=== PATIENT | female | born 1990 | race Caucasian/White ===

== ENCOUNTER 2020-04-13 20:28 | Inpatient (IN) | payer SELFPAY ==
[2020-04-13 21:17] LABS: Basophils % 0.4 %; Eosinophils # 0.1 10^3/uL (0.0-0.8); Eosinophils % 1.5 %; Hematocrit 39.4 % (37.0-47.0); Hemoglobin 11.6 g/dL (11.5-15.3); Lymphocytes # 2.1 10^3/uL (0.8-4.8); Lymphocytes % 28.3 %; Mean Corpuscular HGB Conc 29.4 g/dL (30.0-36.0); Mean Corpuscular Volume 81.4 fL (81-99); Mean Platelet Volume 10.1 fL (7.4-10.4); Monocytes # 0.5 10^3/uL (0.2-0.9); Monocytes % 7.4 %; Neutrophils # 4.55 10^3/uL (1.8-7.7); Neutrophils % 62.1 %; Nucleated Red Blood Cells % 0 %; Platelet Count 390 10^3/cmm (130-400); Red Blood Count 4.84 10^6/uL (4.1-5.3); Red Cell Distribution Width 17.5 % (12.1-15.1); White Blood Count 7.3 10^3/uL (4.0-10.0)
[2020-04-13 21:31] VITALS: BP 135/95; PULSE 97; RESP 18; TEMP 36.4; O2SAT 98; BMI 23.6
[2020-04-13 21:31] LABS: Alanine Aminotransferase 12 U/L (0-33); Albumin Level 5.1 g/dL (3.5-5.2); Alkaline Phosphatase 97 IU/L (35-105); Anion Gap 14.8 (5-19); Aspartate Amino Transferase 17 U/L (0-32); Blood Urea Nitrogen 10 mg/dL (6-20); Calcium 9.9 mg/dL (8.5-10.5); Carbon Dioxide 25 mmol/L (22-29); Chloride 104 mmol/L (98-107); Globulin 2.5 g/dL (1.3-4.6); Glomerular Filtration Rate 84.8 mL/min (90-130); Glucose 82 mg/dL (65-115); Osmolality Calculated 285 mOsm/kg (285-295); Potassium 3.8 mmol/L (3.5-5.1); Sodium 140 mmol/L (136-145); Total Bilirubin 0.2 mg/dL (0.15-1.2); Total Protein 7.6 g/dL (6.6-8.7)
[2020-04-13 21:37] LABS: Acetaminophen < 5.0 ug/mL (10-30); Alcohol Level < 10 mg/dL (0-10); Salicylate < 0.3 mg/dL (3-10)
--- NOTE | 2020-04-13 22:06 | ED_ITS ---
HPI - Psych General: Chief Complaint: Psychiatric Symptoms Stated Complaint: mhe Time Seen by Provider: 04/13/20 21:27 Source: patient Mode of arrival: ambulatory Limitations: no limitations History of Present Illness: HPI Narrative: -year-old female who presents here for mental health exam. Friends dropped her off as she has been acting quite differently. Patient here is quite agitated and is looking all over the room and has tangential thoughts. One moment she tells me she is not suicidal in the neck she tell me she is very depressed. She is unsure if she has had any recent drug use. Patient is able to tell me the date and her name. Patient has had previous psychiatric admissions in the past. She does not appear to be stable on her own or in her right mind currently. Associated symptoms: Reports depression Review of Systems Const: Denies: fever(s), chills, body aches or change in appetite Eyes: Denies: blurry vision or eye discomfort ENMT: Denies: throat pain or dental pain Card: Denies: chest pain Resp: Denies: dyspnea GI: Denies: abdominal pain, nausea, vomiting or diarrhea : Denies: dysuria Musc: Denies: neck pain or back pain Skin/Breast: Denies: rash Neuro: Denies: headache(s) Psych: Reports: anxiety, depression and difficulty concentrating Joshua/Lymph: Denies: easy bruising All/Imm: Denies: urticaria PFS ED PFSH: Social History (Updated 10/25/19 @ 08:54 by Reinier Phipps LPN) Smoking and tobacco status: current every day smoker cigarettes Years cigarettes smoked: 13 Quit status (tobacco): has tried quititng Number of times tried to quit tobacco: 2 Second hand smoke exposure: No Smoking risk assessment/counseling performed?: Yes Tobacco counseling given: counseling >3 minutes Female Reproductive History: Date of last menstrual period: 04/13/20 Physical Exam Const: COMMON NORMALS: patient oriented x3 GENERAL APPEARANCE: anxious HENMT: COMMON NORMALS: normocephalic and atraumatic HEAD & SCALP: normocephalic and atraumatic Eye: COMMON NORMALS: Equal, round and reactive pupils present and EOMs intact bilaterally PUPIL: Yes Equal, round and reactive pupils present Neck/C-Spine: COMMON NORMALS: full ROM and supple Chest: COMMONS NORMALS: normal inspection of the chest and normal palpation of entire chest wall Resp: COMMON NORMALS: normal respiratory effort, No retractions, No use of accessory muscles and clear to auscultation bilaterally AUSCULTATION: clear to auscultation bilaterally Cardio: COMMON NORMALS: regular rate, regular rhythm and No murmurs present (Cardio) RATE: regular rate RHYTHM: regular rhythm GI: COMMON NORMALS: Normal to inspection, nondistended, normoactive bowel sounds present, Soft to palpation, non-tender and no masses PALPATION: Yes Soft to palpation Extremity: COMMON NORMALS: normal to inspection and full ROM Neuro: COMMON NORMALS: patient oriented x3, moves all extremities and no focal motor deficits Psych: APPEARANCE: Yes bizarre ATTITUDE: Yes paranoid SPEECH: Yes rapid THOUGHT PROCESS: disorganized and Tangential thought process present Skin: COMMON NORMALS: no rashes or lesions noted and no wounds GENERAL SKIN EXAM: no rashes or lesions noted MDM - Psych MDM Narrative: Medical decision making narrative: Presents here with acute psychosis. I do not feel she is safe on her own and I had Dr. Morton evaluate her on telemetry psych who recommended a 96-hour hold and admission as well. I spoke to Dr. Aragon and will admit the psychiatric unit. Lab Data: Labs: Lab Results 04/13/20 04/13/20 Range/Units 21:07 21:07 WBC 7.3 (4.0-10.0) 10^3/ uL RBC 4.84 (4.1-5.3) 10^6/u L Hgb 11.6 (11.5-15.3) g/dL Hct 39.4 (37.0-47.0) % MCV 81.4 (81-99) fL MCH 24.0 L (28.0-34.0) pg MCHC 29.4 L (30.0-36.0) g/dL RDW 17.5 H (12.1-15.1) % Plt Count 390 (130-400) 10^3/c mm MPV 10.1 (7.4-10.4) fL Neut % (Auto) 62.1 % Lymph % (Auto) 28.3 % [place] % (Auto) 7.4 % Eos % (Auto) 1.5 % Baso % (Auto) 0.4 % Neut # (Auto) 4.55 (1.8-7.7) 10^3/u L Lymph # (Auto) 2.1 (0.8-4.8) 10^3/u L [place] # (Auto) 0.5 (0.2-0.9) 10^3/u L Eos # (Auto) 0.1 (0.0-0.8) 10^3/u L Baso # (Auto) 0.0 (0.0-0.1) 10^3/u L Nucleated RBC % (a uto) 0 % Nucleated RBCs # 0.0 /100WBC Sodium 140 (136-145) mmol/L Potassium 3.8 (3.5-5.1) mmol/L Chloride 104 (98-107) mmol/L Carbon Dioxide 25 (22-29) mmol/L Anion Gap 14.8 (5-19) BUN 10 (6-20) mg/dL Creatinine 0.8 (0.5-0.9) mg/dL GFR Calculation 84.8 L (90-130) mL/min Glucose 82 (65-115) mg/dL Calculated Osmolal ity 285 (285-295) mOsm/k g Calcium 9.9 (8.5-10.5) mg/dL Total Bilirubin 0.2 (0.15-1.2) mg/dL AST 17 (0-32) U/L ALT 12 (0-33) U/L Alkaline Phosphata se 97 (35-105) IU/L Total Protein 7.6 (6.6-8.7) g/dL Albumin 5.1 (3.5-5.2) g/dL Globulin 2.5 (1.3-4.6) g/dL Salicylates < 0.3 L (3-10) mg/dL Acetaminophen < 5.0 L (10-30) ug/mL Ethyl Alcohol < 10 (0-10) mg/dL Discharge Plan Discharge Patient Disposition: Admitted As Inpatient Clinical Impression: Acute psychosis Condition: Stable Coding Level of Care Code ED Multimedia Designer for Bianca Fwd Exam Comprehensive
[2020-04-13 22:33] LABS: HCG Qualitative Urine. Negative (Negative)
[2020-04-13 23:31] VITALS: PULSE 78; RESP 18; O2SAT 99
[2020-04-13 23:43] VITALS: BP 120/82; PULSE 86; RESP 18; TEMP 36.9; O2SAT 98
[2020-04-14 01:24] LABS: Amphetamines Screen Urine Positive (Negative); Barbiturates Screen Urine Negative (Negative); Benzodiazepines Screen Urine Negative (Negative); Cocaine Screen Urine Negative (Negative); Opiate Screen Urine Negative (Negative); PCP Screen Urine Negative (Negative); THC Screen Urine Negative (Negative)
[2020-04-14 06:00] VITALS: BP 98/52; PULSE 63; RESP 20; TEMP 36.6; O2SAT 98
[2020-04-14 14:00] VITALS: BP 112/74; PULSE 69; RESP 18; TEMP 36.9; O2SAT 99
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
[2020-04-14 22:00] VITALS: BP 106/67; PULSE 56; RESP 20; TEMP 36.9; O2SAT 99
[2020-04-14] MEDS: trazodone 50 mg Tablet PO (22:19)
--- NOTE | 2020-04-14 22:19 | PC.NURSE ---
PRN TRAZODONE PT REQUESTING SLEEP AID. ADMINISTERED TRAZODONE 50 MG PO. WILL MONITOR FOR MEDICATION EFFECTIVENESS.
[2020-04-15 06:00] VITALS: BP 99/64; PULSE 56; RESP 18; TEMP 36.6; O2SAT 97
--- NOTE | 2020-04-15 11:24 | PC.RESP ---
Smoking Cessation information and a schedule of classes sent to patient.
[2020-04-15 14:00] VITALS: BP 96/58; PULSE 80; RESP 18; TEMP 36.9; O2SAT 99
[2020-04-15] MEDS: nicotine 2 mg Gum BUCCAL (18:17)
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
[2020-04-15 21:01] VITALS: BP 106/74; PULSE 81; RESP 14; TEMP 36.6; O2SAT 99
[2020-04-15] MEDS: trazodone 100 mg Tablet 200 MG PO (21:18)
[2020-04-16 06:00] VITALS: BP 93/55; PULSE 56; RESP 13; TEMP 36.3; O2SAT 98
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
[2020-04-16 10:42] VITALS: BP 93/55; PULSE 56; RESP 13; TEMP 36.3; O2SAT 98
== END 2020-04-16 12:49 | disposition home or self-care (01) | DRG 897 ==
LOC: ER 22:13 → NP 22:32
PROVIDERS: Emergency Medicine; Admitting Provider Psychiatry & Neurology Psychiatry; Visit Provider Psychiatry & Neurology Psychiatry
DX: F15.229 Other stimulant dependence with intoxication, unspecified (principal); F43.12 Post-traumatic stress disorder, chronic; F41.1 Generalized anxiety disorder; F17.210 Nicotine dependence, cigarettes, uncomplicated
CPT/HCPCS: 12345; 80053; 80306; 80307; 81025; 85025; 99284

== ENCOUNTER 2020-04-24 13:30 | Inpatient (IN) | payer SELFPAY ==
[2020-04-24 13:35] VITALS: BP 123/94; PULSE 97; RESP 16; TEMP 36.9; O2SAT 100; BMI 26.6
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
[2020-04-24 14:14] VITALS: BP 148/62; PULSE 83; RESP 20; O2SAT 98
[2020-04-24 14:17] LABS: Basophils % 0.2 %; Eosinophils # 0.1 10^3/uL (0.0-0.8); Eosinophils % 1.2 %; Hematocrit 34.7 % (37.0-47.0); Lymphocytes # 1.3 10^3/uL (0.8-4.8); Lymphocytes % 16.1 %; Mean Corpuscular HGB Conc 28.8 g/dL (30.0-36.0); Mean Corpuscular Hemoglobin 23.7 pg (28.0-34.0); Mean Corpuscular Volume 82.2 fL (81-99); Mean Platelet Volume 10.1 fL (7.4-10.4); Monocytes # 0.6 10^3/uL (0.2-0.9); Monocytes % 7.7 %; Neutrophils # 6.22 10^3/uL (1.8-7.7); Neutrophils % 74.6 %; Nucleated Red Blood Cells % 0 %; Platelet Count 314 10^3/cmm (130-400); Red Blood Count 4.22 10^6/uL (4.1-5.3); Red Cell Distribution Width 17.3 % (12.1-15.1); White Blood Count 8.3 10^3/uL (4.0-10.0)
[2020-04-24 14:30] LABS: Alanine Aminotransferase 15 U/L (0-33); Albumin Level 4.8 g/dL (3.5-5.2); Alkaline Phosphatase 87 IU/L (35-105); Anion Gap 16.2 (5-19); Aspartate Amino Transferase 22 U/L (0-32); Blood Urea Nitrogen 16 mg/dL (6-20); Calcium 8.9 mg/dL (8.5-10.5); Carbon Dioxide 23 mmol/L (22-29); Chloride 101 mmol/L (98-107); Globulin 2.9 g/dL (1.3-4.6); Glomerular Filtration Rate 98.9 mL/min (90-130); Glucose 96 mg/dL (65-115); Osmolality Calculated 280 mOsm/kg (285-295); Potassium 3.2 mmol/L (3.5-5.1); Sodium 137 mmol/L (136-145); Total Bilirubin 0.6 mg/dL (0.15-1.2); Total Protein 7.7 g/dL (6.6-8.7)
[2020-04-24 14:36] LABS: Alcohol Level < 10 mg/dL (0-10)
[2020-04-24] MEDS: LORazepam 2 mg Tablet PO (15:09)
[2020-04-24 16:44] LABS: Amphetamines Screen Urine Positive (Negative); Barbiturates Screen Urine Negative (Negative); Benzodiazepines Screen Urine Negative (Negative); Cocaine Screen Urine Negative (Negative); Opiate Screen Urine Negative (Negative); PCP Screen Urine Negative (Negative); THC Screen Urine Negative (Negative)
[2020-04-24 18:19] VITALS: BP 108/54; PULSE 76; RESP 16; O2SAT 97
[2020-04-24 21:00] VITALS: BP 112/68; PULSE 77; RESP 18; TEMP 36.6; O2SAT 99
[2020-04-24 21:24] VITALS: BP 112/68; PULSE 77; RESP 18; TEMP 36.6; O2SAT 99
[2020-04-24 22:05] VITALS: BP 112/68; PULSE 77; RESP 18; TEMP 36.6; O2SAT 98
[2020-04-25 06:00] VITALS: BP 93/59; PULSE 65; RESP 18; TEMP 37.4; O2SAT 97
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
[2020-04-25 14:00] VITALS: BP 91/46; PULSE 89; RESP 18; TEMP 36.7; O2SAT 98
[2020-04-25 20:38] VITALS: BP 117/73; PULSE 63; RESP 17; TEMP 36.5; O2SAT 97
[2020-04-25] MEDS: trazodone 100 mg Tablet 200 MG PO (21:25)
--- NOTE | 2020-04-26 04:11 | PC.NURSE ---
pt was given scheduled trazodone at HS. no behavior issues noted.
[2020-04-26 06:00] VITALS: BP 96/60; PULSE 58; RESP 15; TEMP 36.8; O2SAT 98
[2020-04-26 14:00] VITALS: BP 106/62; PULSE 78; RESP 18; TEMP 37.1; O2SAT 98
--- NOTE | 2020-04-26 15:22 | PM.NPN ---
Subjective NPU Subjective: Interval history: Lexie continues to be fairly isolative but is starting to awake from her withdrawal syndrome. We discussed what her plans were moving forward, but she reports she does plan to do rehab but not inpatient again. Currently social work team, and her, are looking for a bed in a halfway in the community. We have reached out to appropriate facilities and are awaiting their response. She reports that she plans to start there and work from that setting on her recovery with the hope that she can start getting functional again, maybe get a job, but she is not interested in inpatient and she is still not interested in starting any medications other than the Trazodone that she is taking. Mental Status Exam MSE Comments: This is an overweight white female, with adequate dress, limited grooming, and eye contact. No abnormal movements except for psychomotor retardation. More cooperative with exam in no acute distress. Speech was decreased rate and volume and limited. Mood not described as OK; affect subdued. Thought process, more organized at times. Thought content: patient denied suicidal or homicidal ideation, there were no delusions reported or noted, she denied any auditory or visual hallucinations. Attention and concentration were impaired, and memory was unreliable, but none were formally tested. She is more alert and oriented x 3. Insight and judgment are impaired. Impulse control is impaired. Vitals/I&O/Wt Last Vital Signs Temp 98.8 F 04/26/20 14:00 Pulse 78 04/26/20 14:00 Resp 18 04/26/20 14:00 BP 106/62 04/26/20 14:00 Pulse Ox 98 04/26/20 14:00 Data NPU : 04/24/20 14:12 04/24/20 14:12 A&P Additional A&P Information (1) Psychosis: (2) Amphetamine abuse: (3) Post-traumatic stress disorder, chronic: (4) Generalized anxiety disorder: This is a 29 year old, white female, with a history of depression, psychosis, and active addiction, currently with methamphetamine use with positive UDS, fairly out of it, and confused at this time. Continue current medication. Will encourage either Abilify or Invega in hopes of having a long-acting injectable as an option. Encourage individual, group, and milieu therapy. Continue q-15 minute checks for safety. Will encourage patient to follow-up with sober living treatment facility at the highest level of care to which she is willing to commit. Involuntary Hold Information 96 Hour Hold: 96 Hour Involuntary Admission: No 96 Hour Hold Ending Date: 04/19/20 96 Hour Hold Ending Time: 12:01 Attestations NPU Medical Necessity Statement*: Inpatient hospitalization is medically necessary, and the clinically appropriate intervention at this time. We will monitor medications and titrate as indicated. Likely length of stay 4-6 days. Coding Level of Care Code Acute [employer] Finishing Supervisor for Bianca Connell
[2020-04-26] MEDS: trazodone 100 mg Tablet 200 MG PO (20:19)
[2020-04-26 20:35] VITALS: BP 89/64; PULSE 61; RESP 16; TEMP 36.3; O2SAT 98
--- NOTE | 2020-04-26 21:29 | PC.NURSE ---
pt given scheduled trazodone and PRN mucinex per request.
[2020-04-26] MEDS: guaiFENesin 100 mg/5 mL UDC 10 mL 200 MG PO (21:58)
[2020-04-26 22:00] VITALS: BP 89/64; PULSE 61; RESP 16; TEMP 36.3; O2SAT 98
[2020-04-27 06:00] VITALS: BP 86/57; PULSE 67; RESP 14; TEMP 36.7; O2SAT 98
[2020-04-27 14:00] VITALS: BP 134/87; PULSE 93; RESP 18; TEMP 36.8
--- NOTE | 2020-04-27 14:11 | PM.NPN ---
Subjective NPU Subjective: Interval history: The patient presents today seeming to finally start clearing the fog, looking in her eyes the way that she had begun to look prior to discharge, back in August, the last time she was seen by this commercial loan underwriter. We continued to discuss medications, and her considering medications for her mental health but, at this time, she continues to be resistant to that. Feels like she is doing better and that her focus is going to be hopefully on getting an outpatient bed in rehab, and a spot at the residential to get herself back on her feet. Otherwise, she reports that she is sleeping well, eating fine, and slowly starting to feel more like herself. Mental Status Exam MSE Comments: This is an overweight white female, with adequate dress, grooming, and eye contact. No abnormal movements except for improving psychomotor retardation. Cooperative with exam in no acute distress. Speech was more normal rate and volume. Mood not described as better; affect less subdued. Thought process, more organized. Thought content: patient denied suicidal or homicidal ideation, there were no delusions reported or noted, she denied any auditory or visual hallucinations. Attention and concentration are improving, and memory was more, but none were formally tested. She is more alert and oriented x 3. Insight and judgment are improving. Impulse control is limited. Vitals/I&O/Wt Last Vital Signs Temp 98.0 F 04/27/20 06:00 Pulse 67 04/27/20 06:00 Resp 14 04/27/20 06:00 BP 86/57 04/27/20 06:00 Pulse Ox 98 04/27/20 06:00 Data NPU : 04/24/20 14:12 04/24/20 14:12 A&P Additional A&P Information (1) Psychosis: (2) Amphetamine abuse: (3) Post-traumatic stress disorder, chronic: (4) Generalized anxiety disorder: This is a 29 year old, white female, with a history of depression, psychosis, and active addiction, currently with methamphetamine use with positive UDS, starting to get some mental clarity. Continue current medication. Continue to encourage either Abilify or Invega in hopes of having a long-acting injectable as an option. However currently she refuses any medications other than the trazodone. Encourage individual, group, and milieu therapy. Continue q-15 minute checks for safety. Will encourage patient to follow-up with sober living treatment facility at the highest level of care to which she is willing to commit. Involuntary Hold Information 96 Hour Hold: 96 Hour Involuntary Admission: No 96 Hour Hold Ending Date: 04/19/20 96 Hour Hold Ending Time: 12:01 Attestations NPU Medical Necessity Statement*: Inpatient hospitalization is medically necessary, and the clinically appropriate intervention at this time. We will monitor medications and titrate as indicated. Likely length of stay 3-5 days. Coding Level of Care Code Acute Supervisor [employer] for Bianca Connell
[2020-04-27] MEDS: trazodone 100 mg Tablet 200 MG PO (21:37)
[2020-04-27 22:00] VITALS: BP 126/72; PULSE 109; RESP 18; TEMP 36.9; O2SAT 98
--- NOTE | 2020-04-28 00:50 | PC.NURSE ---
pt given scheduled trazodone at [facility].
[2020-04-28 06:00] VITALS: BP 93/55; PULSE 57; RESP 16; TEMP 36.6; O2SAT 97
--- NOTE | 2020-04-28 10:11 | PM.NPN ---
Subjective NPU Subjective: Interval history: Lexie presents today continuing to show improvement day by day, unlike some previous hospitalizations, she is having clarity of thought much earlier in the process. She is seeming much clearer and very much focused on getting out, as soon as possible, to engage in some level of outpatient treatment, and try to get a job, and a place, and things like that. Unfortunately, she is resistant to inpatient again, and she is resistant to psychiatric medication, as she reports she is not feeling depression or anxiety, or has any concerns to be treated. She endorses that she is eating and sleeping well. Mental Status Exam MSE Comments: This is an overweight white female, with adequate dress, grooming, and eye contact. No abnormal movements except for resolving psychomotor retardation. Cooperative with exam in no acute distress. Speech was more normal rate and volume. Mood described as little better; affect less subdued. Thought process, more organized. Thought content: patient denied suicidal or homicidal ideation, there were no delusions reported or noted, she denied any auditory or visual hallucinations. Attention and concentration are improving, and memory was more reliable, but none were formally tested. She is more alert and oriented x 3. Insight and judgment are improving. Impulse control is limited. Vitals/I&O/Wt Last Vital Signs Temp 97.8 F 04/28/20 06:00 Pulse 57 L 04/28/20 06:00 Resp 16 04/28/20 06:00 BP 93/55 04/28/20 06:00 Pulse Ox 97 04/28/20 06:00 Weight last 48 hrs Weight 85.842 kg Data NPU : 04/24/20 14:12 04/24/20 14:12 A&P Additional A&P Information (1) Psychosis: (2) Amphetamine abuse: (3) Post-traumatic stress disorder, chronic: (4) Generalized anxiety disorder: This is a 29 year old, white female, with a history of depression, psychosis, and active addiction, currently with methamphetamine use with positive UDS, starting to get some mental clarity. Continue current medication. Continue to encourage either Abilify or Invega in hopes of having a long-acting injectable as an option. However currently she refuses any medications other than the trazodone. Encourage individual, group, and milieu therapy. Continue q-15 minute checks for safety. Will encourage patient to follow-up with sober living treatment facility at the highest level of care to which she is willing to commit. Involuntary Hold Information 96 Hour Hold: 96 Hour Involuntary Admission: No 96 Hour Hold Ending Date: 04/19/20 96 Hour Hold Ending Time: 12:01 Attestations NPU Medical Necessity Statement*: Inpatient hospitalization is medically necessary, and the clinically appropriate intervention at this time. We will monitor medications and titrate as indicated. Likely length of stay 1-3 days. Coding Level of Care Code Acute Pump Service Supervisor for Bianca Connell
[2020-04-28 14:00] VITALS: BP 93/62; PULSE 84; RESP 18; TEMP 36.4; O2SAT 98
[2020-04-28] MEDS: hyDROXYzine 25 mg Capsule 50 MG PO (20:37)
[2020-04-28] MEDS: OLANZapine 5 mg ODT PO (20:37)
[2020-04-28] MEDS: trazodone 100 mg Tablet 200 MG PO (20:37)
[2020-04-28 21:16] VITALS: BP 107/71; PULSE 83; RESP 20; TEMP 36.6; O2SAT 98
--- NOTE | 2020-04-28 22:16 | PC.NURSE ---
Visteril and Zyprexa given with 2100 meds for sleep / anxiety.
[2020-04-29 06:00] VITALS: BP 83/52; PULSE 61; RESP 20; TEMP 36.6; O2SAT 99
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
[2020-04-29 11:25] VITALS: BP 83/52; PULSE 61; RESP 20; TEMP 36.6; O2SAT 99
== END 2020-04-29 12:15 | disposition home or self-care (01) | DRG 885 ==
LOC: ER 20:15 → NP 20:31
PROVIDERS: Emergency Medicine; Admitting Provider Psychiatry & Neurology Psychiatry; Visit Provider Psychiatry & Neurology Psychiatry
DX: F23 Brief psychotic disorder (principal); F15.10 Other stimulant abuse, uncomplicated; F43.11 Post-traumatic stress disorder, acute; F41.1 Generalized anxiety disorder; F17.210 Nicotine dependence, cigarettes, uncomplicated
CPT/HCPCS: 12345; 36415; 80053; 80306; 80307; 85025; 99284

== ENCOUNTER 2020-05-12 11:48 | Inpatient (IN) | payer SELFPAY ==
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
--- NOTE | 2020-05-12 11:50 | ECG_ITS ---
[facility] Test Date: 2020-05-12 Pat Name: Lexie Romero Department: Room: Gender: Female Medical Technologist Hematology: : 1990 Requested By: Yadira Eddy Order Number: [id number] Corbett MD: Lisha Rojas M.D. Measurements Intervals [place] Rate: 59 P: 23 MA: 111 QRS: 70 QRSD: 94 T: 41 QT: 430 QTc: 427 Interpretive Statements SINUS BRADYCARDIA WITH SHORT MA INTERVAL No previous ECG available for comparison Electronically Signed On 05-13-2020 16:32:53 CDT by Lisha Rojas M.D. [id number]
[2020-05-12 11:54] VITALS: BP 98/59; PULSE 62; RESP 18; TEMP 36.7; O2SAT 95; BMI 22.1
[2020-05-12 12:03] VITALS: O2SAT 98
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
[2020-05-12 12:19] LABS: Basophils % 0.3 %; Eosinophils # 0.1 10^3/uL (0.0-0.8); Eosinophils % 1.1 %; Hematocrit 36.5 % (37.0-47.0); Hemoglobin 10.6 g/dL (11.5-15.3); Lymphocytes # 1.4 10^3/uL (0.8-4.8); Lymphocytes % 22.3 %; Mean Corpuscular Hemoglobin 23.8 pg (28.0-34.0); Mean Platelet Volume 10.1 fL (7.4-10.4); Monocytes # 0.4 10^3/uL (0.2-0.9); Monocytes % 6.4 %; Neutrophils # 4.34 10^3/uL (1.8-7.7); Neutrophils % 69.7 %; Nucleated Red Blood Cells % 0 %; Platelet Count 343 10^3/cmm (130-400); Red Blood Count 4.45 10^6/uL (4.1-5.3); Red Cell Distribution Width 17.2 % (12.1-15.1); White Blood Count 6.2 10^3/uL (4.0-10.0)
[2020-05-12 12:34] LABS: HCG, Serum Qual Negative (Negative)
[2020-05-12 12:49] LABS: Alanine Aminotransferase 14 U/L (0-33); Albumin Level 4.8 g/dL (3.5-5.2); Alkaline Phosphatase 89 IU/L (35-105); Anion Gap 13.9 (5-19); Aspartate Amino Transferase 15 U/L (0-32); Blood Urea Nitrogen 12 mg/dL (6-20); Calcium 9.7 mg/dL (8.5-10.5); Carbon Dioxide 21 mmol/L (22-29); Chloride 108 mmol/L (98-107); Globulin 2.2 g/dL (1.3-4.6); Glomerular Filtration Rate 98.9 mL/min (90-130); Glucose 88 mg/dL (65-115); Osmolality Calculated 284 mOsm/kg (285-295); Potassium 3.9 mmol/L (3.5-5.1); Salicylate 0.5 mg/dL (3-10); Sodium 139 mmol/L (136-145); Thyroid Stimulating Hormone 0.53 uIU/mL (0.27-4.20); Total Bilirubin 0.3 mg/dL (0.15-1.2)
[2020-05-12 12:59] LABS: Acetaminophen < 5.0 ug/mL (10-30); Alcohol Level < 10 mg/dL (0-10); Carbamazepine Tegretol < 2.0 ug/mL (4.0-12.0); Lithium < 0.1 mmol/L (0.6-1.2); Phenytoin Dilantin < 0.8 ug/mL (10-20)
[2020-05-12 13:00] LABS: Valproic Acid Level < 2.8 ug/mL (50-100)
[2020-05-12 13:15] LABS: Amphetamines Screen Urine Positive (Negative); Barbiturates Screen Urine Negative (Negative); Benzodiazepines Screen Urine Negative (Negative); Cocaine Screen Urine Negative (Negative); Opiate Screen Urine Negative (Negative); PCP Screen Urine Negative (Negative); THC Screen Urine Negative (Negative)
[2020-05-12 14:22] VITALS: BP 103/54; PULSE 56; RESP 18; O2SAT 98
[2020-05-12 15:12] VITALS: BP 107/71; PULSE 67; RESP 18; TEMP 36.9; O2SAT 97
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
[2020-05-12] MEDS: hyDROXYzine 25 mg Capsule 50 MG PO (21:46)
[2020-05-12] MEDS: trazodone 50 mg Tablet PO (21:46)
[2020-05-12 22:00] VITALS: BP 124/78; PULSE 98; RESP 16; TEMP 37; O2SAT 97
--- NOTE | 2020-05-12 23:42 | PC.NURSE ---
Pt requested med for sleep and anxiety. PRN Trazodone and vistaril given.
[2020-05-13 06:00] VITALS: BP 97/61; PULSE 71; RESP 15; TEMP 36.6; O2SAT 96
[2020-05-13 13:31] VITALS: BP 94/58; PULSE 65; RESP 18; TEMP 36.6; O2SAT 96
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
[2020-05-13 20:24] VITALS: BP 90/62; PULSE 61; RESP 17; TEMP 36.9; O2SAT 99
[2020-05-13] MEDS: trazodone 100 mg Tablet 200 MG PO (20:43)
--- NOTE | 2020-05-13 21:38 | PC.NURSE ---
pt given scheduled trazodone at [facility].
[2020-05-14 06:00] VITALS: BP 91/49; PULSE 56; RESP 15; TEMP 36.7; O2SAT 98
[2020-05-14 13:56] VITALS: BP 98/66; PULSE 62; RESP 18; TEMP 36.7; O2SAT 98
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
[2020-05-14] MEDS: trazodone 100 mg Tablet 200 MG PO (20:42)
--- NOTE | 2020-05-14 21:20 | PC.NURSE ---
pt given scheduled trazodone.
[2020-05-14 22:00] VITALS: BP 95/65; PULSE 85; RESP 17; TEMP 36.6; O2SAT 97
[2020-05-15 06:00] VITALS: BP 75/37; PULSE 66; RESP 15; TEMP 36.6; O2SAT 97
--- NOTE | 2020-05-15 12:10 | PC.RESP ---
Smoking Cessation information sent to patient.
[2020-05-15 14:00] VITALS: BP 107/62; PULSE 66; RESP 18; TEMP 36.8; O2SAT 98
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
[2020-05-15 16:56] VITALS: BP 107/62; PULSE 66; RESP 18; TEMP 36.8; O2SAT 98
[2020-05-15] MEDS: hyDROXYzine 25 mg Capsule 50 MG PO (20:44)
[2020-05-15] MEDS: trazodone 100 mg Tablet 200 MG PO (20:44)
[2020-05-15] MEDS: blistex lip oint 7 gm Tube 1 APPLIC TOPICAL (21:03)
[2020-05-15 21:05] VITALS: BP 117/77; PULSE 70; RESP 20; TEMP 37; O2SAT 99
[2020-05-16 06:00] VITALS: BP 100/56; PULSE 54; RESP 18; TEMP 36.8; O2SAT 99
== END 2020-05-16 07:32 | disposition home or self-care (01) | DRG 897 ==
LOC: ER 13:43 → NP 14:07
PROVIDERS: Emergency Medicine
DX: F15.129 Other stimulant abuse with intoxication, unspecified (principal); F43.11 Post-traumatic stress disorder, acute; F17.210 Nicotine dependence, cigarettes, uncomplicated
CPT/HCPCS: 12345; 36415; 80053; 80156; 80164; 80178; 80185; 80306; 80307; 84443; 84703; 85025; 93005; 99284

== ENCOUNTER 2022-05-17 10:56 | Emergency (ER) | payer MEDICAID, SELFPAY ==
[2022-05-17 11:00] VITALS: BP 117/75; PULSE 87; RESP 16; TEMP 36.7; O2SAT 98; BMI 22.8
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
--- NOTE | 2022-05-19 14:23 | DCPLANNER ---
marketing finance manager had message to speak with patient about getting established with a primary care physician. There is not a working number in chart, case aide unable to speak with patient at this time.
== END 2022-05-17 12:04 | disposition home or self-care (01) ==
PROVIDERS: Emergency Provider Family Medicine
DX: L02.831 Carbuncle of head [any part, except face] (principal); F17.210 Nicotine dependence, cigarettes, uncomplicated
CPT/HCPCS: 10060; 87070; 87075; 87077; 87186; 87205; 99283

== ENCOUNTER 2022-10-30 21:09 | Emergency (ER) | payer SELFPAY ==
[2022-10-30 21:22] VITALS: PULSE 100; RESP 22; O2SAT 98; BMI 19.8
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
[2022-10-30] MEDS: LORazepam 2 mg/mL INJ 1 mL IM (21:53)
[2022-10-30] MEDS: ziprasidone 20 mg/mL SDV IM (21:54)
[2022-10-30 22:53] LABS: Basophils % 0.1 %; Eosinophils # 0.1 10^3/uL (0.0-0.8); Eosinophils % 1.1 %; Hematocrit 36.1 % (37.0-47.0); Hemoglobin 10.9 g/dL (11.5-15.3); Lymphocytes # 1.6 10^3/uL (0.8-4.8); Lymphocytes % 17.8 %; Mean Corpuscular HGB Conc 30.2 g/dL (30.0-36.0); Mean Corpuscular Hemoglobin 26.1 pg (28.0-34.0); Mean Corpuscular Volume 86.6 fl (81-99); Mean Platelet Volume 9.7 fL (7.4-10.4); Monocytes # 0.8 10^3/uL (0.2-0.9); Monocytes % 8.4 %; Neutrophils # 6.51 10^3/uL (1.8-7.7); Neutrophils % 72.3 %; Nucleated Red Blood Cells % 0 %; Platelet Count 301 10^3/cmm (130-400); Red Blood Count 4.17 10^6/uL (4.1-5.3); Red Cell Distribution Width 14.6 % (12.1-15.1)
[2022-10-30 23:19] LABS: Alanine Aminotransferase 28 U/L (0-33); Albumin Level 4.2 g/dL (3.5-5.2); Alkaline Phosphatase 117 U/L (35-105); Anion Gap 16.2 (5-19); Aspartate Amino Transferase 29 U/L (0-32); Blood Urea Nitrogen 16 mg/dL (6-20); Calcium 8.8 mg/dL (8.5-10.5); Carbon Dioxide 22 mmol/L (22-29); Chloride 103 mmol/L (98-107); Globulin 2.5 g/dL (1.3-4.6); Glomerular Filtration Rate 83.1 mL/min (90-130); Glucose 83 mg/dL (65-115); Osmolality Calculated 284 mOsm/kg (285-295); Potassium 4.2 mmol/L (3.5-5.1); Sodium 137 mmol/L (136-145); Total Bilirubin 0.2 mg/dL (0.15-1.2); Total Protein 6.7 g/dL (6.6-8.7)
[2022-10-30 23:30] LABS: Acetaminophen < 5.0 ug/mL (10-30); Alcohol Level < 10 mg/dL (0-10); Salicylate < 0.3 mg/dL (3-10)
[2022-10-31 04:40] VITALS: BP 103/54; PULSE 84; RESP 13; TEMP 37.6; O2SAT 97
--- NOTE | 2022-10-31 04:41 | PC.NURSE ---
woke pt to check mental status. pt knows name, , where she is, but states nothing is wrong with her and she doesn't know why she's here. pt is drowsy still and does not want to wake up.
--- NOTE | 2022-10-31 06:13 | PC.NURSE ---
pt woke up at 0605 and dressed herself in paper scrubs due to urinating in the jeans she was wearing. pt is awake and alert. pt walked around the room. pt was wheeled to the waiting room after being dc'd.
== END 2022-10-31 06:10 | disposition home or self-care (01) ==
PROVIDERS: Emergency Provider Emergency Medicine
DX: F23 Brief psychotic disorder (principal); F43.12 Post-traumatic stress disorder, chronic; F17.210 Nicotine dependence, cigarettes, uncomplicated
CPT/HCPCS: 80053; 80307; 85025; 96372; 99284; J2060; J3486

== ENCOUNTER 2023-04-08 23:45 | Inpatient (IN) | payer MEDICAID, SELFPAY ==
[2023-04-08 23:53] VITALS: BP 119/71; PULSE 87; RESP 16; TEMP 36.7; O2SAT 97
--- NOTE | 2023-04-09 | ED.C_ITS ---
HPI - Psych General: Chief Complaint: Psychiatric Symptoms Stated Complaint: radha wilson, seeing things Time Seen by Provider: 04/09/23 00:00 Limitations: altered mental status History of Present Illness: Ms. Santiago is a 32-year-old lady with, per chart review likely psychiatric disorder, presenting to the emergency department for mental status change. Patient provides very little meaningful clinical history. She repeats that she does not know when asked about various questions. She appears to be quite anxious and responding to internal stimuli. She does endorse concerns about her vaginal area. History is otherwise limited by mental status. Associated symptoms: Reports delusions Review of Systems General: Reports: ROS unobtainable due to mental status PFSH ED PFSH: Family History (Updated 04/15/23 @ 08:32 by Brett Zurita) Denies family history of Colon cancer Ovarian cancer Diabetes Heart disease Hyperlipidemia Breast cancer Hypertension Uterine cancer Thyroid disease Stroke Physical Exam Const: COMMON NORMALS: alert GENERAL APPEARANCE: cooperative and well developed HENMT: COMMON NORMALS: normocephalic and atraumatic HEAD & SCALP: normocephalic and atraumatic Eye: COMMON NORMALS: conjunctivae normal CONJUNCTIVA: Yes conjunctivae normal SCLERA: sclerae normal Neck/C-Spine: COMMON NORMALS: supple GENERAL: Yes trachea midline Resp: COMMON NORMALS: clear to auscultation bilaterally EFFORT & INSPECTION: Yes able to speak in complete sentences AUSCULTATION: clear to auscultation bilaterally Cardio: COMMON NORMALS: regular rate and regular rhythm RATE: regular rate RHYTHM: regular rhythm GI: COMMON NORMALS: Soft to palpation PALPATION: Yes Soft to palpation, Yes Tenderness to palpation present (GI), No Guarding due to palpation present (GI) and No Rigid due to palpation : OTHER: Pelvic exam performed with cnc lathe programmer present. Fairly extensive vulvovaginitis involving the medial thighs with tenderness palpation. No lesions or open wounds. Limited speculum exam secondary to patient discomfort even with small speculum. There appears to be generalized irritation of the vaginal vault with copious white discharge. Cervical os not definitely visualized. No vaginal bleeding. Extremity: GENERAL: Yes normal exam except as noted and No edema Neuro: COMMON NORMALS: moves all extremities SENSORIUM/ORIENTATION: Yes alert and Yes Orientation impaired Psych: THOUGHT PROCESS: disorganized THOUGHT CONTENT: Yes delusions and Yes rumination(s) INSIGHT: Poor insight present (Psych) JUDGEMENT: Poor judgement present (Psych) Course Vital Signs: Vital signs: Vital Signs Temperature 97.8 F 04/13/23 20:08 Pulse Rate 79 04/14/23 08:58 Respiratory Rate 15 04/14/23 08:58 Blood Pressure 107/68 04/14/23 08:58 Pulse Oximetry 95 04/14/23 08:58 Oxygen Delivery Me thod Room Air 04/14/23 06:00 MDM - Psych Medical Decision Making 32-year-old female presented the emergency department for psychiatric evaluation. She is quite tangential and at times mumbling. She does endorse vaginal area pain. She is nontoxic in appearance and there is no evidence of acute trauma. Labs notable for no leukocytosis, normocytic anemia without evidence of hemorrhage on exam, platelet count is normal. Metabolic panel with evidence of dehydration and hypokalemia. Her hCG is positive. Toxic ingestions positive for amphetamines on UDS and benzodiazepines on UDS. Though patient's mental status is limited I did explain the need for pelvic exam and patient was agreeable. Regardless given patient's test being positive she is at risk for potentially life-threatening time sensitive conditions that require said evaluation regardless of mental state. Exam as above. She will be treated empirically for STIs as well as wet prep findings with dosage. Ultrasound notes approximate gestational age of 25 weeks and 5 days. Based on ED evaluation at this point there is no obvious condition that would preclude inpatient management of patient's psychiatric state. Discussed with psychiatry service who was agreeable to admit patient. Medical Records I reviewed the patient's medical records. Lab Data I reviewed the patient's lab results. 04/09/23 01:11 04/09/23 01:11 Radiology Impressions Ultrasound 04/09/23 02:17 IMPRESSION: 1. Single live IUP as described, age is about 25 weeks 5 days with KELBY of 07/18/2023. 2. Full details above. The current presentation is breech. 3. At this time, there is no focal abnormality identified. Laboratory Results WBC 8.0 10^3/uL (4.0-10.0) 04/09/23 01:11 RBC 3.54 10^6/uL (4.1-5.3) L 04/09/23 01:11 Hgb 8.5 g/dL (11.5-15.3) L 04/09/23 01:11 Hct 28.9 % (37.0-47.0) L 04/09/23 01:11 MCV 81.6 fl (81-99) 04/09/23 01:11 MCH 24.0 pg (28.0-34.0) L 04/09/23 01:11 MCHC 29.4 g/dL (30.0-36.0) L 04/09/23 01:11 RDW 16.3 % (12.1-15.1) H 04/09/23 01:11 Plt Count 304 10^3/cmm (130-400) 04/09/23 01:11 MPV 9.5 fL (7.4-10.4) 04/09/23 01:11 Neut % (Auto) 60.2 % 04/09/23 01:11 Lymph % (Auto) 30.3 % 04/09/23 01:11 [place] % (Auto) 7.3 % 04/09/23 01:11 Eos % (Auto) 0.9 % 04/09/23 01:11 Baso % (Auto) 0.3 % 04/09/23 01:11 Neut # (Auto) 4.83 10^3/uL (1.8-7.7) 04/09/23 01:11 Lymph # (Auto) 2.4 10^3/uL (0.8-4.8) 04/09/23 01:11 [place] # (Auto) 0.6 10^3/uL (0.2-0.9) 04/09/23 01:11 Eos # (Auto) 0.1 10^3/uL (0.0-0.8) 04/09/23 01:11 Baso # (Auto) 0.0 10^3/uL (0.0-0.1) 04/09/23 01:11 Nucleated RBC % (auto) 0 % 04/09/23 01:11 Nucleated RBCs # 0.0 /100WBC 04/09/23 01:11 Sodium 135 mmol/L (136-145) L 04/09/23 01:11 Potassium 3.4 mmol/L (3.5-5.1) L 04/09/23 01:11 Chloride 105 mmol/L (98-107) 04/09/23 01:11 Carbon Dioxide 20 mmol/L (22-29) L 04/09/23 01:11 Anion Gap 13.4 (5-19) 04/09/23 01:11 BUN 4 mg/dL (6-20) L 04/09/23 01:11 Creatinine 0.5 mg/dL (0.5-0.9) 04/09/23 01:11 GFR Calculation 143.0 mL/min (90-130) H 04/09/23 01:11 Glucose 99 mg/dL (65-115) 04/09/23 01:11 Calculated Osmolality 277 mOsm/kg (285-295) L 04/09/23 01:11 Calcium 8.5 mg/dL (8.5-10.5) 04/09/23 01:11 Total Bilirubin 0.2 mg/dL (0.15-1.2) 04/09/23 01:11 AST 24 U/L (0-32) 04/09/23 01:11 ALT 15 U/L (0-33) 04/09/23 01:11 Alkaline Phosphatase 182 U/L (35-105) H 04/09/23 01:11 Total Protein 6.5 g/dL (6.6-8.7) L 04/09/23 01:11 Albumin 3.5 g/dL (3.5-5.2) 04/09/23 01:11 Globulin 3.0 g/dL (1.3-4.6) 04/09/23 01:11 TSH 1.83 uIU/mL (0.27-4.20) 04/09/23 01:11 HCG, Qual Positive (Negative) H 04/09/23 01:11 Ser , Semi-Qnt 40663.00 mIU/mL 04/09/23 01:11 Urine Color Yellow (Yellow) 04/09/23 04:37 Urine Appearance Clear (CLEAR) 04/09/23 04:37 Urine pH 6 (5-7) 04/09/23 04:37 Ur Specific [place] 1.020 (1.005-1.030) 04/09/23 04:37 Urine Protein Neg (Negative) 04/09/23 04:37 Urine Glucose (UA) Norm (Normal) 04/09/23 04:37 Urine Ketones Negative (Negative) 04/09/23 04:37 Urine Blood Neg (Negative) 04/09/23 04:37 Urine Nitrate Negative (Negative) 04/09/23 04:37 Urine Bilirubin Neg (Negative) 04/09/23 04:37 Urine Urobilinogen Neg mg/dL (Negative) 04/09/23 04:37 Ur Leukocyte Esterase 1+ (Negative) H 04/09/23 04:37 Urine RBC 0-4 /hpf (0-2) H 04/09/23 04:37 Urine WBC 10-15 /hpf (0-5) H 04/09/23 04:37 Ur Squamous Epith Cells 5-10 /hpf (0-5) H 04/09/23 04:37 Amorphous Sediment Not Reportable 04/09/23 04:37 Urine Bacteria 1+ /hpf (NONE) H 04/09/23 04:37 Urine Trichomonas 1+ /hpf H 04/09/23 04:37 Salicylates < 0.3 mg/dL (3-10) L 04/09/23 01:11 Urine Opiates Screen Negative ng/mL (Negative) 04/09/23 04:37 Acetaminophen < 5.0 ug/mL (10-30) L 04/09/23 01:11 Ur Barbiturates Screen Negative ng/mL (Negative) 04/09/23 04:37 Ur Phencyclidine Scrn Negative ng/mL (Negative) 04/09/23 04:37 Ur Amphetamines Screen Positive ng/mL (Negative) H 04/09/23 04:37 U Benzodiazepines Scrn Positive ng/mL (Negative) H 04/09/23 04:37 Urine Cocaine Screen Negative ng/mL (Negative) 04/09/23 04:37 U Marijuana (THC) Screen Negative ng/mL (Negative) 04/09/23 04:37 Ethyl Alcohol < 10 mg/dL (0-10) 04/09/23 01:11 C.trachomatis RNA (TMA) Detected (NOT DETECTED) A 04/09/23 02:26 Chlamydia/GC Comment See note 04/09/23 02:26 N.gonorrhoeae RNA (TMA) Not detected (NOT DETECTED) 04/09/23 02:26 Discharge Plan Discharge Patient Disposition: Admitted As Inpatient Admit Provider: Claudio Riojas Clinical Impression: Acute psychosis, Bacterial vaginosis, Vulvovaginal rash, infection, trichomonal, Anemia, , Amphetamine abuse Condition: Stable Discharge Diet: Advance as tolerated Discharge Activity: Resume usual activity Coding Level of Care Code ED Admissions Officer for Bianca Connell
[2023-04-09] MEDS: LORazepam 1 mg Tablet PO (00:41)
[2023-04-09 01:21] LABS: Basophils % 0.3 %; Eosinophils # 0.1 10^3/uL (0.0-0.8); Eosinophils % 0.9 %; Hematocrit 28.9 % (37.0-47.0); Hemoglobin 8.5 g/dL (11.5-15.3); Lymphocytes # 2.4 10^3/uL (0.8-4.8); Lymphocytes % 30.3 %; Mean Corpuscular HGB Conc 29.4 g/dL (30.0-36.0); Mean Corpuscular Volume 81.6 fl (81-99); Mean Platelet Volume 9.5 fL (7.4-10.4); Monocytes # 0.6 10^3/uL (0.2-0.9); Monocytes % 7.3 %; Neutrophils # 4.83 10^3/uL (1.8-7.7); Neutrophils % 60.2 %; Nucleated Red Blood Cells % 0 %; Platelet Count 304 10^3/cmm (130-400); Red Blood Count 3.54 10^6/uL (4.1-5.3); Red Cell Distribution Width 16.3 % (12.1-15.1)
[2023-04-09 01:33] LABS: HCG, Serum Qual Positive (Negative)
[2023-04-09 01:49] LABS: Alanine Aminotransferase 15 U/L (0-33); Albumin Level 3.5 g/dL (3.5-5.2); Alkaline Phosphatase 182 U/L (35-105); Anion Gap 13.4 (5-19); Aspartate Amino Transferase 24 U/L (0-32); Blood Urea Nitrogen 4 mg/dL (6-20); Calcium 8.5 mg/dL (8.5-10.5); Carbon Dioxide 20 mmol/L (22-29); Chloride 105 mmol/L (98-107); Glucose 99 mg/dL (65-115); Osmolality Calculated 277 mOsm/kg (285-295); Potassium 3.4 mmol/L (3.5-5.1); Sodium 135 mmol/L (136-145); Thyroid Stimulating Hormone 1.83 uIU/mL (0.27-4.20); Total Bilirubin 0.2 mg/dL (0.15-1.2); Total Protein 6.5 g/dL (6.6-8.7)
[2023-04-09 01:53] LABS: Acetaminophen < 5.0 ug/mL (10-30); Alcohol Level < 10 mg/dL (0-10); Salicylate < 0.3 mg/dL (3-10)
--- NOTE | 2023-04-09 02:17 | USR_ITS ---
PROCEDURE INFORMATION: Exam: US , Limited and US , Transvaginal Exam date and time: 04/09/2023 3:38 AM Age: 32 years old Clinical indication: Lmp or gestational age (in weeks): 25w 5d; Other: Neuropsych patient with serum hcg = 19068; ; Additional info: Preg, psychotic, unknown last lmp TECHNIQUE: Imaging protocol: Real-time ultrasound of the maternal uterus with image documentation. Transvaginal imaging was used for better evaluation of the fetus, adnexa, and/or cervix. Exam focused on the clinical indication. COMPARISON: No relevant prior studies available. FINDINGS: Gestation: Single live IUP visualized. heart rate: heart rate is 157 bpm. position: The facial profile is obscured. presentation: The presentation is currently breech. Placenta: The placenta is right-fundal, no evidence of previa. Amniotic fluid index: The [place] is 15.6 cm. ANATOMY: brain parenchyma: The brain appears intact. heart four-chamber view, heart size and position: The four-chamber heart view is normal. kidneys: Kidneys were noted. stomach: stomach was present. spine: spine unremarkable. Umbilical cord insertion site into the abdomen: Normal cord insertion. Umbilical cord vessel number: Three-vessel cord documented. BIOMETRY: Gestational age (AUA): The estimated age is about 25 weeks 5 days. Estimated due date (AUA): The KELBY is 07/18/2023. MATERNAL: Cervix: Cervix is closed with a 3.6 cm length. Intraperitoneal space: No free fluid. US/US OB >= 14 weeks fetus [id number] IMPRESSION: 1. Single live IUP as described, age is about 25 weeks 5 days with KELBY of 07/18/2023. 2. Full details above. The current presentation is breech. 3. At this time, there is no focal abnormality identified.
[2023-04-09] MEDS: azithromycin 250 mg Tablet 1000 MG PO (03:16)
[2023-04-09] MEDS: metroNIDAZOLE 500 MG Tablet 2000 MG PO (03:16)
[2023-04-09] MEDS: cefTRIAXone 500 MG in water for injection-sterile 1 ML IM (03:17)
[2023-04-09 04:40] VITALS: BP 104/65; PULSE 71; RESP 16; O2SAT 96
[2023-04-09 04:55] LABS: Add Urine Microscopic? YES; Bilirubin Urine Neg (Negative); Blood Urine Neg (Negative); Glucose Urine UA Norm (Normal); Ketones Urine Negative (Negative); Leukocyte Esterase Urine 1+ (Negative); Nitrate Urine Negative (Negative); Protein Urine Neg (Negative); Urine Color Yellow (Yellow); Urobilinogen Urine Neg (Negative); pH Urine 6 (5-7)
[2023-04-09 04:56] LABS: Bacteria Urine 1+ /hpf; RBC Urine 0-4 /hpf (0-2); Trichomonas Urine 1+ /hpf
[2023-04-09 04:57] LABS: Add Urine Culture? Yes; Amphetamines Screen Urine Positive (Negative); Barbiturates Screen Urine Negative (Negative); Benzodiazepines Screen Urine Positive (Negative); Cocaine Screen Urine Negative (Negative); Opiate Screen Urine Negative (Negative); PCP Screen Urine Negative (Negative); THC Screen Urine Negative (Negative); Urine Appearance Clear (CLEAR)
[2023-04-09 05:45] VITALS: BP 124/76; PULSE 76; RESP 16; TEMP 36.7; O2SAT 99
[2023-04-09 14:00] VITALS: BP 101/61; PULSE 84; RESP 16; TEMP 37.6; O2SAT 97
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
--- NOTE | 2023-04-09 19:37 | PC.NURSE ---
CONSULT FOR OB PLACED PER DR. RAMOS ORDERS. OB STATED DR. GARCIA WAS METAL INSPECTOR. DR. GARCIA CALLED AND SHE STATED SHE WAS NOT METAL INSPECTOR THIS WEEKEND. OB RN IS HERE TO CHECK HEART TONES PER ORDER THIS AM. AWAITING TO SEE WHO IS METAL INSPECTOR FOR OB.
--- NOTE | 2023-04-09 19:48 | PC.NURSE ---
AT 194 DR. FLOR WAS CONSULTED FOR OB CONSULT. SPOKE WITH DR. FLOR AND HE WAS UPDATED IN PT. STATES HE WILL SEE HER TOMORROW. RATNA RN COMPLETED HEART TONES AT 194 AT HEART TONES WERE REGULAR IN THE 150'S. PT WAS UPDATED ON DR. FLOR SEEING HER TOMORROW.
[2023-04-09] MEDS: haloperidol 1 mg Tablet PO (20:47)
[2023-04-09 22:00] VITALS: BP 100/60; PULSE 78; RESP 16; TEMP 36.7; O2SAT 98
[2023-04-10 06:00] VITALS: BP 107/69; PULSE 83; RESP 20; TEMP 36.4; O2SAT 98
[2023-04-10 12:03] LABS: Chlamydia Trachomatis RNA TMA DETECTED (NOT DETECTED); Neisseria Gonorrhoeae RNA, TMA NOT DETECTED (NOT DETECTED)
[2023-04-10 14:00] VITALS: BP 104/65; PULSE 73; RESP 15; TEMP 36.7; O2SAT 100
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
--- NOTE | 2023-04-10 17:23 | W.PM.NPUPNS ---
Subjective NPU Subjective: 32 year old 25 weeks admitted with psychosis with methamphetamine abuse admitted with disorganized behavior and depressed mood. She reported continued depression and reports feeling depressed. She had endorsed being homeless and reported that she had not heard voices today. She reports continued suicidal thoughts. She had reported sleep continuity disruption. She had isolated on the milieu and reported that she did not know that she was until this week. Mental Status Exam MSE Comments: This is a 32-year-old female who appeared older than her stated age. She had poor hygiene and was lying in bed but alert and oriented x3. There was significant psychomotor retardation noted. Her speech was normal in productivity and normal in volume and rhythm. Mood was described as depressed. Her affect was odd and subdued. She did at times appear to be responding to internal stimuli. Her thought process was nonlinear and illogical. Her thought content showed no evidence of homicidal or suicidal ideation. There was mild evidence of paranoia. Her insight is impaired. Her judgment is poor. Her impulse control appeared limited. Her recent and remote memory appeared to be improved. Vitals/I&O/Wt Last Vital Signs Temp 98.1 F 04/10/23 14:00 Pulse 73 04/10/23 14:00 Resp 15 04/10/23 14:00 BP 104/65 04/10/23 14:00 Pulse Ox 100 04/10/23 14:00 O2 Del Method Room Air 04/10/23 06:00 Weight last 48 hrs Weight 81.193 kg Data NPU 04/09/23 01:11 04/09/23 01:11 Micro: Microbiology 04/09/23 04:37 Urine Culture - Preliminary Urine,Clean Catch 04/09/23 01:50 Gram Stain - Final Vaginal Wet Prep - Final Microbiology 04/09/23 04:37 Urine,Clean Catch Urine Culture - Preliminary 04/09/23 01:50 Vaginal Gram Stain - Final 04/09/23 01:50 Vaginal Wet Prep - Final A&P Assessment and plan (1) Acute psychosis: (2) Methamphetamine abuse: (3) : Plan 32-year-old female currently 25 weeks admitted with disorganized behavior and complaints of hallucinations in the context of active use of methamphetamine. Patient will continue require inpatient hospitalization. 1.?Encourage individual, group and milieu therapy. 2.?Recommend sober living treatment at the highest level of care to which the patient is willing to commit. 3.??? Continue q-15 minute checks for safety.? 4. We will attempt to gather collateral and information. 5. FOOD PROCESSING PLANT MANAGER consult recommended 6. Trial of zoloft to target depression, risks, benefits discussed with patient who was agreeable. Involuntary Hold Information 96 Hour Hold: 96 Hour Involuntary Admission: Yes 96 Hour Hold Ending Date: 04/15/23 96 Hour Hold Ending Time: 04:20 Attestations NPU Medical Necessity Statement*: Inpatient hospitalization is medically necessary and deemed to be the clinically appropriate intervention at this time. We will monitor and initiate medications while making changes as indicated. The patient will be in the hospital for over 2 midnights. The patient's likely length of stay is 4 to 7 days. Coding Level of Care Code Acute Code for g Fwd Diagnoses Acute psychosis F23 Methamphetamine abuse F15.10 Z34.90
[2023-04-10] MEDS: metroNIDAZOLE 500 MG Tablet 2000 MG PO (17:44)
[2023-04-10] MEDS: sertraline 50 mg Tablet 25 MG PO (17:46)
[2023-04-10 19:54] VITALS: BP 104/63; PULSE 74; RESP 15; O2SAT 98
[2023-04-10] MEDS: haloperidol 1 mg Tablet PO (20:42)
[2023-04-11 06:00] VITALS: BP 101/69; PULSE 90; RESP 18; O2SAT 97; BMI 27.0
[2023-04-11] MEDS: sertraline 50 mg Tablet 25 MG PO (09:27)
[2023-04-11 14:00] VITALS: BP 104/67; PULSE 96; RESP 15; TEMP 36.4; O2SAT 98
--- NOTE | 2023-04-11 14:19 | PC.NURSE ---
call made to Dr Shields regarding vaginal culture report of Strep B agalactiae+. Per Dr Shields patient will be treated with IV antibiotics during labor. Dr Riojas informed
--- NOTE | 2023-04-11 15:14 | W.PM.NPUPNS ---
Subjective NPU Subjective: 32 year old 25 weeks admitted with psychosis, depression with methamphetamine abuse admitted with disorganized behavior and depressed mood. She continues to endorse feeling depressed. Patient had been positive for group B streptococcus and remains 25 weeks . Patient had tolerated antibiotics without difficulty. She had reported intermittent suicidal thoughts. She had reported feeling better today. She had reported no auditory hallucinations today. She had been able to eat and was compliant and redirectable on the milieu. She had continue to report feeling tired and stated that she wanted to sleep throughout the day. Mental Status Exam MSE Comments: This is a 32-year-old female who appeared older than her stated age. She had poor hygiene and was lying in bed but alert and oriented x3. There was significant psychomotor retardation noted. Her speech was normal in productivity and normal in volume and rhythm. Mood was described as a little better. Her affect was odd and subdued. She did not appear to be responding to internal stimuli. There was no overt delusional thinking noted. Her thought process was linear and logical today. Her thought content showed no evidence of homicidal or suicidal ideation. There was mild evidence of paranoia. Her insight was improving. Her judgment is poor. Her impulse control appeared limited. Her recent and remote memory appeared to be improved. Vitals/I&O/Wt Last Vital Signs Temp 98.1 F 04/10/23 14:00 Pulse 90 04/11/23 06:00 Resp 18 04/11/23 06:00 BP 101/69 04/11/23 06:00 Pulse Ox 97 04/11/23 06:00 O2 Del Method Room Air 04/10/23 06:00 Weight last 48 hrs Weight 80.739 kg Data NPU 04/09/23 01:11 04/09/23 01:11 Micro: Microbiology 04/09/23 01:50 Gram Stain - Final Vaginal Wet Prep - Final Genital Culture - Preliminary Strep agalactiae - (group b) 04/09/23 04:37 Urine Culture - Final Urine,Clean Catch Microbiology 04/09/23 01:50 Vaginal Gram Stain - Final 04/09/23 01:50 Vaginal Wet Prep - Final 04/09/23 01:50 Vaginal Genital Culture - Preliminary Strep agalactiae - (group b) 04/09/23 04:37 Urine,Clean Catch Urine Culture - Final A&P Assessment and plan (1) Acute psychosis: (2) Methamphetamine abuse: (3) : Plan 32-year-old female currently 25 weeks admitted with disorganized behavior and complaints of hallucinations in the context of active use of methamphetamine. Patient will continue require inpatient hospitalization. 1.?Encourage individual, group and milieu therapy. 2.?Recommend sober living treatment at the highest level of care to which the patient is willing to commit. 3.??? Continue q-15 minute checks for safety.? 4. We will attempt to gather collateral and information. 5. CHIMNEY CONSTRUCTION SUPERVISOR consult appreciated. Patient positive for Group B strep, will need treatment when delivery occurs. Continue Flagyl for infection. 6. Continue Zoloft as prescribed. Haldol 1mg at night. Involuntary Hold Information 96 Hour Hold: 96 Hour Involuntary Admission: Yes 96 Hour Hold Ending Date: 04/15/23 96 Hour Hold Ending Time: 04:20 Attestations NPU Medical Necessity Statement*: Inpatient hospitalization is medically necessary and deemed to be the clinically appropriate intervention at this time. We will monitor and initiate medications while making changes as indicated. The patient's likely length of stay is 4 to 7 days. Coding Level of Care Code Acute Code for g Fwd Diagnoses Acute psychosis F23 Methamphetamine abuse F15.10 Z34.90
[2023-04-11] MEDS: azithromycin 250 mg Tablet 1000 MG PO (15:16)
[2023-04-11 19:38] VITALS: BP 97/61; PULSE 79; RESP 16; TEMP 36.5; O2SAT 98
[2023-04-11] MEDS: haloperidol 1 mg Tablet PO (20:11)
[2023-04-12 06:00] VITALS: BP 107/65; PULSE 84; RESP 16; TEMP 36.9; O2SAT 98
[2023-04-12] MEDS: sertraline 50 mg Tablet 25 MG PO (08:34)
[2023-04-12 14:00] VITALS: BP 115/74; PULSE 87; RESP 16; TEMP 36.7; O2SAT 97
--- NOTE | 2023-04-12 16:22 | P.NPUPN_ITS ---
Subjective NPU Subjective: 32 year old 25 weeks admitted with psychosis, depression with methamphetamine abuse admitted with disorganized behavior and depressed mood. The patient had reported no desire to consider substance abuse treatment. She stated that she was agreeable to staying at a snf. She reported no hallucinations at this time. She was compliant and pleasant on the unit. She had reported that [place] [facility] [place] She was agreeable to following up with her OB GEN for further examination regarding her child. She was compliant on the milieu and appeared somewhat tired but was engageable. Mental Status Exam MSE Comments: This is a 32-year-old female who appeared older than her stated age. She had poor hygiene and was lying in bed but alert and oriented x3. There was mild psychomotor retardation noted. Her speech was normal in productivity and normal in volume and rhythm. Mood was described as a okay.. Her affect was restricted in range and mood incongruent still. She did not appear to be responding to internal stimuli. There was no overt delusional thinking noted. Her thought process was linear and logical today. Her thought content showed no evidence of homicidal or suicidal ideation. . Her insight was improving. Her judgment is poor. Her impulse control appeared limited. Her recent and remote memory appeared to be improved. Vitals/I&O/Wt Last Vital Signs Temp 98.0 F 04/12/23 14:00 Pulse 87 04/12/23 14:00 Resp 16 04/12/23 14:00 BP 115/74 04/12/23 14:00 Pulse Ox 97 04/12/23 14:00 O2 Del Method Room Air 04/11/23 19:38 Weight last 48 hrs Weight 80.739 kg Data NPU 04/09/23 01:11 04/09/23 01:11 Micro: Microbiology 04/09/23 01:50 Gram Stain - Final Vaginal Wet Prep - Final Genital Culture - Final Strep agalactiae - (group b) Microbiology 04/09/23 01:50 Vaginal Gram Stain - Final 04/09/23 01:50 Vaginal Wet Prep - Final 04/09/23 01:50 Vaginal Genital Culture - Final Strep agalactiae - (group b) A&P Assessment and plan (1) Acute psychosis: (2) Methamphetamine abuse: (3) : Plan 32-year-old female currently 25 weeks admitted with disorganized behavior and complaints of hallucinations in the context of active use of methamphetamine. Patient will continue require inpatient hospitalization. 1.?Encourage individual, group and milieu therapy. 2.?Recommend sober living treatment at the highest level of care to which the patient is willing to commit. 3.??? Continue q-15 minute checks for safety.? 4. We will attempt to gather collateral and information. 5. [employer] HELPER consult appreciated. Patient positive for Group B strep, will need treatment when delivery occurs. Continue Flagyl for infection. 6. Increase zoloft to 50mg in am. D/C haldol Involuntary Hold Information 96 Hour Hold: 96 Hour Involuntary Admission: Yes 96 Hour Hold Ending Date: 04/15/23 96 Hour Hold Ending Time: 04:20 Attestations NPU Medical Necessity Statement*: Inpatient hospitalization is medically necessary and deemed to be the clinically appropriate intervention at this time. We will monitor and initiate medications while making changes as indicated. The patient's likely length of stay is 2-3 days. Coding Level of Care Code Acute Code for [facility]i Diagnoses Acute psychosis F23 Methamphetamine abuse F15.10 Z34.90
[2023-04-12 19:48] VITALS: BP 101/69; PULSE 82; RESP 16; TEMP 37.2; O2SAT 98
[2023-04-12] MEDS: trazodone 50 mg Tablet PO (20:52)
[2023-04-13 06:00] VITALS: BP 100/60; PULSE 90; RESP 16; O2SAT 97
[2023-04-13] MEDS: sertraline 50 mg Tablet PO (09:57)
[2023-04-13 13:27] VITALS: BP 108/68; PULSE 77; RESP 15; TEMP 36.6; O2SAT 91
--- NOTE | 2023-04-13 17:12 | P.NPUPN_ITS ---
Subjective NPU Subjective: 32 year old 25 weeks admitted with psychosis, depression with methamphetamine abuse admitted with disorganized behavior and depressed mood. Patient had accepted placement [place] [facility] [place]. The patient had reported no desire to consider substance abuse treatment and refused [facility] services on interview. She had reported that her mood had been feeling better. She had denied any suicidal thoughts today. She reported improved energy. She had been less confused and reported that she would be interested in another treatment for substance abuse. Mental Status Exam MSE Comments: This is a 32-year-old female who appeared older than her stated age. She had poor hygiene and was lying in bed but alert and oriented x3. There was mild psychomotor retardation noted. Her speech was normal in productivity and normal in volume and rhythm. Mood was described as better.. Her affect remains restricted in range but slightly brighter. She did not appear to be responding to internal stimuli. There was no overt delusional thinking noted. Her thought process was linear and logical today. Her thought content showed no evidence of homicidal or suicidal ideation. Her insight was improving. Her judgment is poor in regards to not wanting further services for her addiction issues. Her impulse control appeared limited. Her recent and remote memory appeared to be improved. Vitals/I&O/Wt Last Vital Signs Temp 98 F 04/13/23 13:27 Pulse 77 04/13/23 13:27 Resp 15 04/13/23 13:27 BP 108/68 04/13/23 13:27 Pulse Ox 91 04/13/23 13:27 O2 Del Method Room Air 04/13/23 06:00 Data NPU 04/09/23 01:11 04/09/23 01:11 Micro: Microbiology 04/09/23 01:50 Gram Stain - Final Vaginal Wet Prep - Final Genital Culture - Final Strep agalactiae - (group b) Microbiology 04/09/23 01:50 Vaginal Gram Stain - Final 04/09/23 01:50 Vaginal Wet Prep - Final 04/09/23 01:50 Vaginal Genital Culture - Final Strep agalactiae - (group b) A&P Assessment and plan (1) Acute psychosis: (2) Methamphetamine abuse: (3) : Plan 32-year-old female currently 25 weeks admitted with disorganized behavior and complaints of hallucinations in the context of active use of methamphetamine. Patient will continue require inpatient hospitalization. 1.?Encourage individual, group and milieu therapy. 2.?Recommend sober living treatment at the highest level of care to which the patient is willing to commit. 3.??? Continue q-15 minute checks for safety.? 4. We will attempt to gather collateral and information. 5. [employer] SURGEON consult appreciated. Patient positive for Group B strep, will need treatment when delivery occurs. Continue Flagyl for infection. 6. Continue zoloft to 50mg in am. D/C tommorow. Follow up with [employer] SURGEON needed immediately. Involuntary Hold Information 96 Hour Hold: 96 Hour Involuntary Admission: Yes 96 Hour Hold Ending Date: 04/15/23 96 Hour Hold Ending Time: 04:20 Attestations NPU Medical Necessity Statement*: Inpatient hospitalization is medically necessary and deemed to be the clinically appropriate intervention at this time. We will monitor and initiate medications while making changes as indicated. The patient's likely length of stay is 1-2 days. Coding Level of Care Code Acute Code for g Fwd Diagnoses Acute psychosis F23 Methamphetamine abuse F15.10 Z34.90
[2023-04-13 20:08] VITALS: BP 110/66; PULSE 84; RESP 17; TEMP 36.6; O2SAT 95
[2023-04-13] MEDS: trazodone 50 mg Tablet PO (20:40)
[2023-04-14 06:00] VITALS: BP 107/68; PULSE 79; RESP 15; O2SAT 95
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
[2023-04-14 08:58] VITALS: BP 107/68; PULSE 79; RESP 15; O2SAT 95
[2023-04-14] MEDS: sertraline 50 mg Tablet PO (09:16)
[2023-04-14] MEDS: prenatal vitamin Capsule 1 CAP PO (09:16)
== END 2023-04-14 11:34 | disposition home or self-care (01) | DRG 832 ==
LOC: ER 04-09 05:09 → NP 04-09 05:25
PROVIDERS: Admitting Provider Psychiatry & Neurology Psychiatry; Emergency Provider Emergency Medicine; Visit Provider Psychiatry & Neurology Psychiatry
DX: O99.342 Other mental disorders complicating pregnancy, second trimester (principal); F15.20 Other stimulant dependence, uncomplicated; R45.851 Suicidal ideations; F53.1 Puerperal psychosis; Z3A.25 25 weeks gestation of pregnancy; Z62.810 Personal history of physical and sexual abuse in childhood; Z59.00 Homelessness unspecified; O99.820 Streptococcus B carrier state complicating pregnancy; Z91.128 Patient's intentional underdosing of medication regimen for other reason
CPT/HCPCS: 36415; 76805; 80053; 80306; 80307; 81001; 84443; 84702; 84703; 85025; 87070; 87086; 87205; 87210; 87491; 87591; 96372; 97165; 99238; 99285; J0696; Q0144

== ENCOUNTER → 2023-04-15 08:40 | Outpatient (BNVA) | payer MEDICAID, SELFPAY | PROVIDERS: Visit Provider Obstetrics & Gynecology | DX: Z34.80 Encounter for supervision of other normal pregnancy, unspecified trimester (principal) | CPT/HCPCS: 80307; 81000; 82950; 85027; 86592; 86762; 86803; 86850; 86900; 87086; 87340; 87522; 87806 ==

== ENCOUNTER 2023-05-04 23:24 | Outpatient (CLI) | payer MEDICAID, SELFPAY ==
[2023-05-04 23:39] VITALS: BP 125/83; PULSE 90
[2023-05-04 23:43] VITALS: RESP 15
[2023-05-04 23:54] VITALS: BP 101/64; PULSE 82
[2023-05-05 00:08] VITALS: BP 112/56; PULSE 73
[2023-05-05 00:36] VITALS: BMI 26.6
[2023-05-05 00:54] LABS: Amphetamines Screen Urine Positive (Negative); Barbiturates Screen Urine Negative (Negative); Benzodiazepines Screen Urine Negative (Negative); Cocaine Screen Urine Negative (Negative); Opiate Screen Urine Negative (Negative); PCP Screen Urine Negative (Negative); THC Screen Urine Negative (Negative)
[2023-05-05 00:58] LABS: Bilirubin Urine Neg (Negative); Blood Urine Neg (Negative); Glucose Urine UA Norm (Normal); Ketones Urine Negative (Negative); Nitrate Urine Negative (Negative); Protein Urine Neg (Negative); Specific Gravity, Urine 1.015 (1.005-1.030); Urine Appearance Hazy (CLEAR); Urine Color Yellow (Yellow); Urobilinogen Urine Norm (Negative); pH Urine 6 (5-7)
[2023-05-05 00:59] LABS: Bacteria Urine TRACE /hpf; Leukocyte Esterase Urine 2+ (Negative); RBC Urine 0-4 /hpf (0-2); Trichomonas Urine 1+ /hpf; WBC Urine 15-25 /hpf (0-5)
[2023-05-05 01:00] LABS: Add Urine Culture? Yes
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
--- NOTE | 2023-05-05 23:51 | USR_ITS ---
PROCEDURE INFORMATION: Exam: US , Limited Exam date and time: 05/05/2023 12:19 AM Age: 32 years old Clinical indication: Lmp or gestational age (in weeks): 29w 2d by prior u/s a month ago; Antepartum complications; Other: Neuropsych patient reports leaking fluid; ; Additional info: Shimon; Patient reports leaking fluid LABS AND CLINICAL REPORTS: Last menstrual period start date: 10/12/2022 Gestational age (Established): 29 w 2 d Estimated due date (Established): 07/19/2023 TECHNIQUE: Imaging protocol: Real-time ultrasound of the maternal uterus with image documentation. Exam focused on the clinical indication. COMPARISON: US OB <= 14 weeks fetus [id number] 04/09/2023 3:38 AM FINDINGS: Gestation: Intrauterine gestation. heart rate: 141 bpm presentation: Cephalic Placenta: Anterior and Right grade 1 placenta without previa. Amniotic fluid: Amniotic fluid volume is normal. Amniotic fluid index: SHIMON is 17.5 cm. Single deepest pocket measures 5.1 cm. MATERNAL: Cervix: Cervical length measures 3.6 cm. US/US OB limited [id number] IMPRESSION: Living [place] fetus is in cephalic position. Amniotic fluid index is normal. Closed cervix. No evidence of placenta previa.
== END 2023-05-05 00:50 | disposition home or self-care (01) ==
LOC: OPOB 23:25 → OBGYN 23:26
PROVIDERS: Visit Provider Obstetrics & Gynecology
DX: O26.899 Other specified pregnancy related conditions, unspecified trimester (principal); R10.9 Unspecified abdominal pain; Z3A.00 Weeks of gestation of pregnancy not specified
CPT/HCPCS: 76815; 80306; 81001; 87086

== ENCOUNTER 2023-05-05 00:51 | Inpatient (IN) | payer MEDICAID, SELFPAY ==
[2023-05-05 00:55] VITALS: BP 118/77; PULSE 81; RESP 18; TEMP 36.5; O2SAT 100; BMI 25.1
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
[2023-05-05 01:24] LABS: Basophils % 0.2 %; Eosinophils # 0.1 10^3/uL (0.0-0.8); Eosinophils % 0.9 %; Hematocrit 30.1 % (37.0-47.0); Hemoglobin 8.7 g/dL (11.5-15.3); Lymphocytes # 2.6 10^3/uL (0.8-4.8); Lymphocytes % 23.5 %; Mean Corpuscular HGB Conc 28.9 g/dL (30.0-36.0); Mean Corpuscular Hemoglobin 22.7 pg (28.0-34.0); Mean Corpuscular Volume 78.4 fl (81-99); Mean Platelet Volume 9.7 fL (7.4-10.4); Monocytes # 0.6 10^3/uL (0.2-0.9); Monocytes % 5.5 %; Neutrophils # 7.65 10^3/uL (1.8-7.7); Neutrophils % 69.5 %; Nucleated Red Blood Cells % 0 %; Platelet Count 357 10^3/cmm (130-400); Red Blood Count 3.84 10^6/uL (4.1-5.3); Red Cell Distribution Width 16.9 % (12.1-15.1)
[2023-05-05 01:29] VITALS: BP 143/91; PULSE 74; RESP 18; TEMP 36.6; O2SAT 100
[2023-05-05 01:39] LABS: Alanine Aminotransferase 37 U/L (0-33); Albumin Level 3.3 g/dL (3.5-5.2); Alkaline Phosphatase 195 U/L (35-105); Anion Gap 14.6 (5-19); Aspartate Amino Transferase 31 U/L (0-32); Blood Urea Nitrogen 8 mg/dL (6-20); Calcium 8.8 mg/dL (8.5-10.5); Carbon Dioxide 20 mmol/L (22-29); Chloride 105 mmol/L (98-107); Globulin 3.5 g/dL (1.3-4.6); Glucose 85 mg/dL (65-115); Osmolality Calculated 278 mOsm/kg (285-295); Potassium 4.6 mmol/L (3.5-5.1); Salicylate 1.1 mg/dL (3-10); Sodium 135 mmol/L (136-145); Total Bilirubin 0.2 mg/dL (0.15-1.2); Total Protein 6.8 g/dL (6.6-8.7)
[2023-05-05 01:43] VITALS: BP 118/77; PULSE 81; RESP 18; TEMP 36.5; O2SAT 100
[2023-05-05 01:47] LABS: Acetaminophen < 5.0 ug/mL (10-30); Alcohol Level < 10 mg/dL (0-10)
--- NOTE | 2023-05-05 02:03 | PC.NURSE ---
Pt arrived to NPU w/2 RNs at side. Pt denies all drug and alcohol abuse, however is clearly under the influence. It is difficult to complete admit assessment because pt can't stay on task. Pt sitting on bench awaiting housekeeping to clean the room.
--- NOTE | 2023-05-05 02:13 | PC.NURSE ---
Pt drug screen returned + for AMP, pt con't to deny drug use. Pt unable to verify her medications states I don't know .
[2023-05-05 06:00] VITALS: RESP 16
--- NOTE | 2023-05-05 08:20 | PC.OT ---
EVAL ATTEMPTED AT 0815. PT WILL NOT STAY AWAKE TO ANSWER QUESTIONS. NURSING RECOMMENDS HOLD AT THIS TIME. WILL FOLLOW UP APPROPRIATE.
[2023-05-05] MEDS: sertraline 50 mg Tablet PO (09:55)
[2023-05-05] MEDS: prenatal vitamin Capsule 1 CAP PO (09:55)
--- NOTE | 2023-05-05 10:10 | PC.NURSE ---
pt pocketed zoloft in her mouth upon administration. swallowed vitamin but then when [employer] superintendent [employer] Jessica turned away from patient I observed her spitting out something into the cover I imediatley asked her was she having problems taking her medication pt then put pill back into her mouth and swallowed showing me with raised tongue and wide mouth that she did swallow it.
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
[2023-05-05 14:00] VITALS: BP 121/70; PULSE 74; RESP 16; TEMP 36.6; O2SAT 97
[2023-05-05] MEDS: haloperidol 1 mg Tablet PO (17:39)
[2023-05-05 20:13] VITALS: BP 115/69; PULSE 74; RESP 14; TEMP 36.9; O2SAT 98
--- NOTE | 2023-05-05 21:09 | PC.NURSE ---
2 OB nurses to unit and did FHT, reported them at 134.
[2023-05-06 06:00] VITALS: BP 116/76; PULSE 74; RESP 15; O2SAT 96
[2023-05-06] MEDS: prenatal vitamin Capsule 1 CAP PO (09:11)
[2023-05-06] MEDS: sertraline 50 mg Tablet PO (09:11)
--- NOTE | 2023-05-06 10:22 | PC.NURSE ---
spoke with Dr Shields regarding his patient being back in NPU. Informed him patient still tested positive for trich. He stated she also tested positive for chlamydia and ordered meds for this infection. Informed Dr Riojas and Dr Shields stated he does not need another consult on her
[2023-05-06] MEDS: azithromycin 250 mg Tablet 1000 MG PO (11:03)
[2023-05-06] MEDS: metroNIDAZOLE 500 MG Tablet 2000 MG PO (11:04)
[2023-05-06 14:00] VITALS: BP 120/75; PULSE 75; RESP 16; TEMP 36.7; O2SAT 99
--- NOTE | 2023-05-06 16:00 | W.PM.NPUPNS ---
Subjective NPU Subjective: 32 year old 27 weeks admitted with psychosis, depression with methamphetamine abuse admitted with disorganized behavior and depressed mood. The patient had continued to isolate herself on the milieu. She had been very forgetful and confused. She had been positive again for trichomonas and was evaluated by the patient's PERFORATOR LOADER on the unit today. Patient had been willing to consider another replacement here [place] when stabilized. She had continued to report depressed mood but minimized any drug use recently. 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 She continued to require prompting for completion of activities of daily living. Mental Status Exam MSE Comments: The patient is a white female with normal gait and poor hygiene with a disheveled appearance. There was no evidence of any abnormal involuntary motor movements tics or tremors appreciated. She continued to appear somewhat distracted. She had wrapped a blanket around her body and face and still appeared in moderate distress. Her speech remained slurred and slow with some increased latency in speech noted and diminished spontaneous spontaneity of speech. Her thought process was linear but superficial. Thought content: She endorsed no suicidal ideation with no plan. She denied any homicidal ideation. She had endorsed auditory hallucinations and did not appear to be responding to internal stimuli. Her mood was described as depressed. Her affect was restricted in range and mood-congruent. She was alert and oriented to person and place but not date or time. Her insight is impaired. Her judgment is poor. Her impulse control appeared limited. Her recent and remote memory appeared impaired as well. Vitals/I&O/Wt Last Vital Signs Temp 98.1 F 05/06/23 14:00 Pulse 75 05/06/23 14:00 Resp 16 05/06/23 14:00 BP 120/75 05/06/23 14:00 Pulse Ox 99 05/06/23 14:00 O2 Del Method Room Air 05/06/23 06:00 Weight last 48 hrs Weight 77.111 kg Data NPU 05/05/23 01:13 05/05/23 01:13 A&P Assessment and plan (1) Depression, unspecified: (2) Acute psychosis: (3) Methamphetamine abuse: (4) : (5) Post-traumatic stress disorder, chronic: (6) Generalized anxiety disorder: Plan 32-year-old female currently 29 weeks admitted with disorganized behavior and complaints of hallucinations, suicidal ideation who appears negative on preliminary drug screen but with a hx of multiple dependence. Patient will continue require inpatient hospitalization. 1.?Encourage individual, group and milieu therapy. 2.?Recommend sober living treatment at the highest level of care to which the patient is willing to commit. 3.??? Continue q-15 minute checks for safety.? 4. We will continue Zoloft to 50 mg daily and increase low-dose of Haldol 2 mg to target psychosis. 5. PERFORATOR LOADER consult recommended Involuntary Hold Information 96 Hour Hold: 96 Hour Involuntary Admission: No 96 Hour Hold Ending Date: 04/15/23 96 Hour Hold Ending Time: 04:20 Attestations NPU Medical Necessity Statement*: Inpatient hospitalization is medically necessary and deemed to be the clinically appropriate intervention at this time. We will monitor and initiate medications while making changes as indicated. The patient's likely length of stay is 4 to 7 days. Coding Level of Care Code Acute Code for [facility] Diagnoses Depression, unspecified F32.A Acute psychosis F23 Methamphetamine abuse F15.10 Z34.90 Post-traumatic stress disorder, chronic F43.12 Generalized anxiety disorder F41.1
[2023-05-06] MEDS: haloperidol 1 mg Tablet 2 MG PO (17:23)
[2023-05-06 20:56] VITALS: BP 113/74; PULSE 74; RESP 18; O2SAT 99
[2023-05-06] MEDS: trazodone 50 mg Tablet PO (23:48)
[2023-05-07 06:00] VITALS: BP 108/68; PULSE 77; RESP 16; O2SAT 99
[2023-05-07] MEDS: sertraline 50 mg Tablet PO (09:24)
[2023-05-07] MEDS: prenatal vitamin Capsule 1 CAP PO (09:24)
[2023-05-07 14:00] VITALS: BP 110/65; PULSE 79; RESP 16; TEMP 36.4; O2SAT 99
--- NOTE | 2023-05-07 14:20 | P.NPUPN_ITS ---
Subjective NPU Subjective: 32 year old 29 weeks admitted with psychosis, depression with methamphetamine abuse admitted with disorganized behavior and depressed mood. The patient had been more interactive and less isolative today. She had continued to remain vague about why she had left the [place] [facility]. She had stated that she was interested in considering a placement in [place] that focused on addiction. She had continued to state that she was distracted by her thoughts. She had endorsed continued depression. Patient had engaged in her self-care today as she had showered. She was compliant with her medications and stated that she was feeling a little better . Mental Status Exam MSE Comments: The patient is a white female with normal gait and improved hygiene and improved eye contact. There was no evidence of any abnormal involuntary motor movements tics or tremors appreciated. She appeared less distracted today. She had wrapped a blanket around her body but came out of the blanket to interact during the interview. Her speech appeared more productive with normal volume a nd improvement in overall spontaneity of speech. Her thought process was linear but remained superficial with an inability to elaborate. Thought content: She endorsed no suicidal ideation with no plan. She denied any homicidal ideation. She had endorsed auditory hallucinations that she states were quieter today. Her mood was described as a little better. Her affect remained restricted. She was alert and oriented to person and place, and time today. Her insight is impaired. Her judgment is poor. Her impulse control appeared limited. Her recent and remote memory appeared impaired as well. Vitals/I&O/Wt Last Vital Signs Temp 98.1 F 05/06/23 14:00 Pulse 77 05/07/23 06:00 Resp 16 05/07/23 06:00 BP 108/68 05/07/23 06:00 Pulse Ox 99 05/07/23 06:00 O2 Del Method Room Air 05/07/23 06:00 Data NPU 05/05/23 01:13 05/05/23 01:13 A&P Assessment and plan (1) Depression, unspecified: (2) Acute psychosis: (3) Methamphetamine abuse: (4) : (5) Post-traumatic stress disorder, chronic: (6) Generalized anxiety disorder: Plan 32-year-old female currently 29 weeks admitted with disorganized beh avior and complaints of hallucinations, suicidal ideation who appears negative on preliminary drug screen but with a hx of multiple dependence. Patient will continue require inpatient hospitalization. 1.?Encourage individual, group and milieu therapy. 2.?Recommend sober living treatment at the highest level of care to which the patient is willing to commit. 3.??? Continue q-15 minute checks for safety.? 4. Increase Zoloft to 75mg daily and continue low-dose of Haldol 2 mg to target psychosis. 5. 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 We will monitor and initiate medications while making changes as indicated. The patient's likely length of stay is 4 to 7 days. Coding Level of Care Code Acute Code for g Fwd Diagnoses Depression, unspecified F32.A Acute psychosis F23 Methamphetamine abuse F15.10 Z34.90 Post-traumatic stress disorder, chronic F43.12 Generalized anxiety disorder F41.1
[2023-05-07] MEDS: haloperidol 1 mg Tablet 2 MG PO (18:00)
[2023-05-07 19:39] VITALS: BP 106/62; PULSE 72; RESP 16; TEMP 36.8; O2SAT 97
[2023-05-07] MEDS: trazodone 50 mg Tablet PO (21:39)
[2023-05-08 06:00] VITALS: BP 110/65; PULSE 69; RESP 16; TEMP 36.6; O2SAT 98
[2023-05-08] MEDS: prenatal vitamin Capsule 1 CAP PO (09:15)
[2023-05-08] MEDS: sertraline 50 mg Tablet 75 MG PO (09:15)
--- NOTE | 2023-05-08 12:14 | P.NPUPN_ITS ---
Subjective NPU Subjective: 32 year old 29 weeks admitted with psychosis, depression with methamphetamine abuse admitted with disorganized behavior and depressed mood. Patient has been engaging in her self-care much better. She has been out off the unit and has been more social. She had denied any hallucinations at this time. She had continued to express having few supports. She had expressed some interest in keeping her child as she reported motivation to manage her self-care and support her . The patient had been more pleasant and attending to her care. She had reported improved sleep with the Haldol. She reported no side effects from her medication. Mental Status Exam MSE Comments: The patient is a white female with normal gait and improved hygiene and improved eye contact. There was no evidence of any abnormal involuntary motor movements tics or tremors appreciated. She was pleasant and cooperative on interview. Her speech appeared more productive with normal rate and volume.. Her thought process was linear and logical today. Thought content: She endorsed no suicidal ideation with no plan. She denied any homicidal ideation. She denied any auditory or visual hallucinations and did not appear to be responding to internal stimuli. Her mood was described as good. Her affect appeared brighter today. She was alert and oriented to person and place, and time today. Her insight is improving. Her judgment is fair. Her impulse control remained guarded. Her recent and remote memory appeared to be improving as well. Vitals/I&O/Wt Last Vital Signs Temp 97.9 F 05/08/23 06:00 Pulse 69 05/08/23 06:00 Resp 16 05/08/23 06:00 BP 110/65 05/08/23 06:00 Pulse Ox 98 05/08/23 06:00 O2 Del Method Room Air 05/08/23 06:00 05/07/23 05/08/23 05/08/23 22:59 06:59 14:59 Intake Total 0 / 0 Balance 0 / 0 Data NPU 05/05/23 01:13 05/05/23 01:13 A&P Assessment and plan (1) Depression, unspecified: (2) Acute psychosis: (3) Methamphetamine abuse: (4) : (5) Post-traumatic stress disorder, chronic: (6) Generalized anxiety disorder: Plan 32-year-old female currently 29 weeks admitted with disorganized behavior and complaints of hallucinations, suicidal ideation who appears negative on preliminary drug screen but with a hx of multiple dependence. Patient will continue require inpatient hospitalization. 1.?Encourage individual, group and milieu therapy. 2.?Recommend sober living treatment at the highest level of care to which the patient is willing to commit. 3.??? Continue q-15 minute checks for safety.? 4. increase in zoloft to 100mg tommorow and continue low-dose of Haldol 2 mg to target psychosis. 5. 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 Placement sought at retirement, or program to manage addiction and mood as well. Involuntary Hold Information 96 Hour Hold: 96 Hour Involuntary Admission: No 96 Hour Hold Ending Date: 04/15/23 96 Hour Hold Ending Time: 04:20 Attestations NPU Medical Necessity Statement*: Inpatient hospitalization is medically necessary and deemed to be the clinically appropriate intervention at this time. We will monitor and initiate medications while making changes as indicated. The patient's likely length of stay is 4 to 7 days. Coding Level of Care Code Acute Code for [facility] Fwd Diagnoses Depression, unspecified F32.A Acute psychosis F23 Methamphetamine abuse F15.10 Z34.90 Post-traumatic stress disorder, chronic F43.12 Generalized anxiety disorder F41.1
--- NOTE | 2023-05-08 13:00 | PC.NURSE ---
OB RN CHECKED PATIENT'S FHTS. READINGS WERE IN THE 130S
[2023-05-08 14:00] VITALS: BP 120/61; PULSE 70; RESP 16; TEMP 36.6; O2SAT 98
[2023-05-08] MEDS: haloperidol 1 mg Tablet 2 MG PO (18:36)
[2023-05-08 19:56] VITALS: BP 121/77; PULSE 75; RESP 16; TEMP 36.6; O2SAT 99
[2023-05-08] MEDS: trazodone 50 mg Tablet PO (20:22)
[2023-05-09 06:00] VITALS: BP 105/62; PULSE 76; RESP 16; O2SAT 98
[2023-05-09] MEDS: sertraline 50 mg Tablet 75 MG PO (09:38)
[2023-05-09] MEDS: prenatal vitamin Capsule 1 CAP PO (09:39)
--- NOTE | 2023-05-09 09:56 | PC.NURSE ---
Patient denies SI, HI, AVH, depression and anxiety during morning assessment. Patient took her morning medications with no issue. Patient cooperative and polite.
--- NOTE | 2023-05-09 12:20 | W.PM.NPUPNS ---
Subjective NPU Subjective: 32 year old 29 weeks admitted with psychosis, depression with methamphetamine abuse admitted with disorganized behavior and depressed mood. Patient had reported her mood as being better. She had discussed potential options for where she could live once discharged from here. She had attempted to contact the facility near [place] that aided women in need of residential and stated that this would be a good option. She had also considered staying in the local area while residing with a friend. She had reported no cravings for methamphetamine but acknowledged that she was tempted to use once she had been discharged the prior time. She had stated that she had interest in caring for her . She had reported having limited social supports. Patient had been less isolative and more social while reporting that her hallucinations had diminished substantially. She had reported that her mood was getting better 2. Mental Status Exam MSE Comments: The patient is a white female with normal gait and improved hygiene and good eye contact. There was no evidence of any abnormal involuntary motor movements tics or tremors appreciated. She was pleasant and cooperative on interview. Her speech appeared more productive with normal rate and volume.. Her thought process was linear and logical today. Thought content: She endorsed no suicidal ideation with no plan. She denied any homicidal ideation. She denied any auditory or visual hallucinations and did not appear to be responding to internal stimuli. Her mood was described as good. Her affect appeared brighter. She was alert and oriented to person and place, and time today. Her insight is improving. Her judgment is fair. Her impulse control remained guarded. Her recent and remote memory appeared to be improving as well. Vitals/I&O/Wt Last Vital Signs Temp 97.8 F 05/08/23 19:56 Pulse 76 05/09/23 06:00 Resp 16 05/09/23 06:00 BP 105/62 05/09/23 06:00 Pulse Ox 98 05/09/23 06:00 O2 Del Method Room Air 05/08/23 14:00 05/08/23 05/09/23 05/09/23 22:59 06:59 14:59 Intake Total 0 / 0 Balance 0 / 0 Weight last 48 hrs Weight 81.737 kg Data NPU 05/05/23 01:13 05/05/23 01:13 A&P Assessment and plan (1) Depression, unspecified: (2) Acute psychosis: (3) Methamphetamine abuse: (4) : (5) Post-traumatic stress disorder, chronic: (6) Generalized anxiety disorder: Plan 32-year-old female currently 29 weeks admitted with disorganized behavior and complaints of hallucinations, suicidal ideation who appears negative on preliminary drug screen but with a hx of multiple dependence. Patient will continue require inpatient hospitalization. 1.?Encourage individual, group and milieu therapy. 2.?Recommend sober living treatment at the highest level of care to which the patient is willing to commit. 3.??? Continue q-15 minute checks for safety.? 4. Increase zoloft to 100mg in am and continue low-dose of Haldol 2 mg to target psychosis. 5. 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 Placement sought at residential, or program to manage addiction and mood as well. Involuntary Hold Information 96 Hour Hold: 96 Hour Involuntary Admission: No 96 Hour Hold Ending Date: 04/15/23 96 Hour Hold Ending Time: 04:20 Attestations NPU Medical Necessity Statement*: Inpatient hospitalization is medically necessary and deemed to be the clinically appropriate intervention at this time. We will monitor and initiate medications while making changes as indicated. The patient's likely length of stay is 2-3 days. Coding Level of Care Code Acute Code for [facility] Fwd Diagnoses Depression, unspecified F32.A Acute psychosis F23 Methamphetamine abuse F15.10 Z34.90 Post-traumatic stress disorder, chronic F43.12 Generalized anxiety disorder F41.1
[2023-05-09] MEDS: nicotine 2 mg Gum BUCCAL (13:36)
[2023-05-09 14:00] VITALS: BP 97/56; PULSE 72; RESP 17; TEMP 36.8; O2SAT 98
[2023-05-09] MEDS: haloperidol 1 mg Tablet 2 MG PO (17:34)
[2023-05-09 19:53] VITALS: BP 116/73; PULSE 77; RESP 16; TEMP 36.7; O2SAT 98
[2023-05-09] MEDS: trazodone 50 mg Tablet PO (20:46)
[2023-05-10 06:00] VITALS: BP 105/65; PULSE 80; RESP 16; TEMP 36.9; O2SAT 98
[2023-05-10] MEDS: sertraline 50 mg Tablet 100 MG PO (09:21)
[2023-05-10] MEDS: prenatal vitamin Capsule 1 CAP PO (09:21)
--- NOTE | 2023-05-10 11:09 | W.PM.NPUPNS ---
Subjective NPU Subjective: 32 year old 29 weeks admitted with psychosis, depression with methamphetamine abuse admitted with disorganized behavior and depressed mood. Patient had reported feeling better today. She had reported that she was concerned about returning back to the same environment where she would use methamphetamine again. She had expressed interest in [facility] as a potential place for the patient to stay for several months while being able to remain on her medications for depression and for methamphetamine induced psychosis. The patient had shown improved initiative and motivation to seek another option including a placement in [place] that would also serve as a treatment facility and a place to stay to remain sober. The patient did not attend groups today as she had reported feeling tired. She had reported no hallucinations today. Mental Status Exam MSE Comments: The patient is a white female with normal gait and improved hygiene and good eye contact. There was no evidence of any abnormal involuntary motor movements tics or tremors appreciated. She was pleasant and cooperative on interview. Her speech appeared normal in regards to rate rhythm and prosody. Her thought process was linear and logical today. Thought content: She endorsed no suicidal ideation with no plan. She denied any homicidal ideation. She denied any auditory or visual hallucinations and did not appear to be responding to internal stimuli. Her mood was described as better. Her affect appeared brighter. She was alert and oriented to person and place, and time today. Her insight is improving. Her judgment is fair. Her impulse control remained guarded. Her recent and remote memory appeared to be improving as well. Vitals/I&O/Wt Last Vital Signs Temp 98.4 F 05/10/23 06:00 Pulse 80 05/10/23 06:00 Resp 16 05/10/23 06:00 BP 105/65 05/10/23 06:00 Pulse Ox 98 05/10/23 06:00 O2 Del Method Room Air 05/09/23 14:00 05/09/23 05/10/23 05/10/23 22:59 06:59 14:59 Intake Total 0 / 0 Balance 0 / 0 Weight last 48 hrs Weight 81.737 kg Data NPU 05/05/23 01:13 05/05/23 01:13 A&P Assessment and plan (1) Depression, unspecified: (2) Acute psychosis: (3) Methamphetamine abuse: (4) : (5) Post-traumatic stress disorder, chronic: (6) Generalized anxiety disorder: Plan 32-year-old female currently 29 weeks admitted with disorganized behavior and complaints of hallucinations, suicidal ideation who appears negative on preliminary drug screen but with a hx of multiple dependence. Patient will continue require inpatient hospitalization. 1.?Encourage individual, group and milieu therapy. 2.?Recommend sober living treatment at the highest level of care to which the patient is willing to commit. 3.??? Continue q-15 minute checks for safety.? 4. Continue zoloft to 100mg in am and continue low-dose of Haldol 2 mg to target psychosis. 5. 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 Given her history of homelessness and lack of long term along with her current medical status, we are awaiting transfer to rehabilitation such as the [facility]. Involuntary Hold Information 96 Hour Hold: 96 Hour Involuntary Admission: No 96 Hour Hold Ending Date: 04/15/23 96 Hour Hold Ending Time: 04:20 Attestations NPU Medical Necessity Statement*: Inpatient hospitalization is medically necessary and deemed to be the clinically appropriate intervention at this time. We will monitor and initiate medications while making changes as indicated. The patient's likely length of stay is 2-3 days. Coding Level of Care Code Acute Code for [facility] Fwd Diagnoses Depression, unspecified F32.A Acute psychosis F23 Methamphetamine abuse F15.10 Z34.90 Post-traumatic stress disorder, chronic F43.12 Generalized anxiety disorder F41.1
[2023-05-10 14:00] VITALS: BP 123/75; PULSE 82; RESP 16; TEMP 36.7; O2SAT 97
[2023-05-10] MEDS: haloperidol 1 mg Tablet 2 MG PO (19:35)
[2023-05-10 19:40] VITALS: BP 124/83; PULSE 94; RESP 16; TEMP 36.4; O2SAT 98
[2023-05-10] MEDS: trazodone 50 mg Tablet PO (20:14)
[2023-05-11 06:00] VITALS: BP 103/65; PULSE 64; RESP 16; O2SAT 98
[2023-05-11] MEDS: sertraline 50 mg Tablet 100 MG PO (08:58)
[2023-05-11] MEDS: prenatal vitamin Capsule 1 CAP PO (08:58)
--- NOTE | 2023-05-11 12:51 | P.NPUPN_ITS ---
Subjective NPU Subjective: 32 year old 29 weeks admitted with psychosis, depression with methamphetamine abuse admitted with disorganized behavior and depressed mood. The patient had complained of a continued urinary tract infection today. She had reported some optimism regarding placement at [facility] that had a program for managing women struggling with addiction and women. She had reported that the recovery center options and [place] were limited as the [place] program did not allow women. She had reported no suicidal thoughts. She had reported some concern about going to a friend's house nearby if that was the only option as she felt likely to use metha mphetamine again. She had reported having limited success with managing her substance abuse and reported need for help with an inpatient stay. She was able to attend groups and appeared more social. Mental Status Exam MSE Comments: The patient is a white female with normal gait and fair hygiene and good eye contact. There was no evidence of any abnormal involuntary motor movements tics or tremors appreciated. She was pleasant and cooperative on interview. Her speech appeared normal in regards to rate rhythm and prosody. Her thought process was linear and logical today. Thought content: She endorsed no suicidal ideation with no plan. She denied any homicidal ideation. She denied any auditory or visual hallucinations and did not appear to be responding to internal stimuli. Her mood was described as okay. Her affect appeared euthymic. She was alert and oriented to person and place, and time today. Her insight is improving. Her judgment is fair. Her impulse control remained guarded. Her recent and remote memory appeared to be improving as well. Vitals/I&O/Wt Last Vital Signs Temp 97.5 F L 05/10/23 19:40 Pulse 64 05/11/23 06:00 Resp 16 05/11/23 06:00 BP 103/65 05/11/23 06:00 Pulse Ox 98 05/11/23 06:00 O2 Del Method Room Air 05/10/23 14:00 Data NPU 05/05/23 01:13 05/05/23 01:13 A&P Assessment and plan (1) Depression, unspecified: (2) Acute psychosis: (3) Methamphetamine abuse: (4) : (5) Post-traumatic stress disorder, chronic: (6) Generalized anxiety disorder: Plan 32-year-old female currently 29 weeks admitted with disorganized behavior and complaints of hallucinations, suicidal ideation who appears negative on preliminary drug screen but with a hx of multiple dependence. Patient will continue require inpatient hospitalization. 1.?Encourage individual, group and milieu therapy. 2.?Recommend sober living treatment at the highest level of care to which the patient is willing to commit. 3.??? Continue q-15 minute checks for safety.? 4. Continue zoloft to 100mg in am and continue low-dose of Haldol 2 mg to target psychosis. 5. 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 Given her history of homelessness and lack of half-way along with her current medical status, We are continuing to search for inpatient options given her history of repeated admissions, and current medical status. Involuntary Hold Information 96 Hour Hold: 96 Hour Involuntary Admission: No 96 Hour Hold Ending Date: 04/15/23 96 Hour Hold Ending Time: 04:20 Attestations U Medical Necessity Statement*: Inpatient hospitalization is medically necessary and deemed to be the clinically appropriate intervention at this time. We will monitor and initiate medications while making changes as indicated. The patient's likely length of stay is 2-3 days. Coding Level of Care Code Acute Code for [facility] Fwd Diagnoses Depression, unspecified F32.A Acute psychosis F23 Methamphetamine abuse F15.10 Z34.90 Post-traumatic stress disorder, chronic F43.12 Generalized anxiety disorder F41.1
[2023-05-11 13:57] VITALS: BP 110/72; PULSE 100; RESP 16; TEMP 36.6; O2SAT 98
[2023-05-11] MEDS: haloperidol 1 mg Tablet 2 MG PO (17:45)
[2023-05-11 18:23] LABS: Amphetamines Screen Urine Negative (Negative); Barbiturates Screen Urine Negative (Negative); Benzodiazepines Screen Urine Negative (Negative); Cocaine Screen Urine Negative (Negative); Opiate Screen Urine Negative (Negative); PCP Screen Urine Negative (Negative); THC Screen Urine Negative (Negative)
[2023-05-11 20:10] VITALS: BP 123/70; PULSE 69; RESP 18; TEMP 36.7; O2SAT 100
[2023-05-11] MEDS: trazodone 50 mg Tablet PO (20:23)
[2023-05-12 06:00] VITALS: BP 100/54; PULSE 73; RESP 15; TEMP 36.7; O2SAT 97
[2023-05-12] MEDS: prenatal vitamin Capsule 1 CAP PO (08:53)
[2023-05-12] MEDS: sertraline 50 mg Tablet 100 MG PO (08:53)
[2023-05-12] MEDS: nicotine 21 mg Patch 1 PATCH TRANSDERMA (13:41)
[2023-05-12 14:00] VITALS: BP 113/61; PULSE 69; RESP 16; TEMP 36.4; O2SAT 98
[2023-05-12] MEDS: haloperidol 1 mg Tablet 2 MG PO (17:20)
--- NOTE | 2023-05-12 17:28 | P.NPUPN_ITS ---
Subjective NPU Subjective: 32 year old 29 weeks admitted with psychosis, depression with methamphetamine abuse admitted with disorganized behavior and depressed mood. The patient had complained of a continued burning on urination. She had continued to isolate herself on the milieu. She had reported feeling somewhat tired. She had reported no voices currently. She had reported depressed mood but stated that she was feeling better. She had denied any cravings for methamphetamine. Mental Status Exam MSE Comments: The patient is a white female with normal gait and fair hygiene and good eye contact. There was no evidence of any abnormal involuntary motor movements tics or tremors appreciated. She was pleasant and cooperative on interview. Her speech appeared normal in regards to rate rhythm and prosody. Her thought process was linear and logical today. Thought content: She endorsed no suicidal ideation with no plan. She denied any homicidal ideation. She denied any auditory or visual hallucinations and did not appear to be responding to internal stimuli. Her mood was described as good. Her affect appeared brighter. She was alert and oriented to person and place, and time today. Her insight is improving. Her judgment is fair. Her impulse control remained guarded. Her recent and remote memory appeared to be improving as well. Vitals/I&O/Wt Last Vital Signs Temp 97.6 F 05/12/23 14:00 Pulse 69 05/12/23 14:00 Resp 16 05/12/23 14:00 BP 113/61 05/12/23 14:00 Pulse Ox 98 05/12/23 14:00 O2 Del Method Room Air 05/12/23 06:00 Data NPU 05/05/23 01:13 05/05/23 01:13 A&P Assessment and plan (1) Depression, unspecified: (2) Acute psychosis: (3) Methamphetamine abuse: (4) : (5) Post-traumatic stress disorder, chronic: (6) Generalized anxiety disorder: Plan 32-year-old female currently 29 weeks admitted with disorganized behavior and complaints of hallucinations, suicidal ideation who appears negative on preliminary drug screen but with a hx of multiple dependence. Keegan barnes will continue require inpatient hospitalization. 1.?Encourage individual, group and milieu therapy. 2.?Recommend sober living treatment at the highest level of care to which the patient is willing to commit. 3.??? Continue q-15 minute checks for safety.? 4. Continue zoloft to 100mg in am and continue low-dose of Haldol 2 mg to target psychosis. 5. 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 Given her history of homelessness and lack of intermediate along with her current medical status, We are continuing to search for inpatient options with living support while continuing to supervise with medications and work with patient on addiction issues. Involuntary Hold Information 96 Hour Hold: 96 Hour Involuntary Admission: No 96 Hour Hold Ending Date: 0 04/15/23 96 Hour Hold Ending Time: 04:20 Attestations NPU Medical Necessity Statement*: Inpatient hospitalization is medically necessary and deemed to be the clinically appropriate intervention at this time. We will monitor and initiate medications while making changes as indicated. The patient's likely length of stay is 2-3 days. Coding Level of Care Code Acute Code for [facility] Fwd Diagnoses Depression, unspecified F32.A Acute psychosis F23 Methamphetamine abuse F15.10 Z34.90 Post-traumatic stress disorder, chronic F43.12 Generalized anxiety disorder F41.1
[2023-05-12 20:33] VITALS: BP 157/76; PULSE 70; RESP 19; O2SAT 99
[2023-05-12] MEDS: trazodone 50 mg Tablet PO (21:18)
[2023-05-13 06:00] VITALS: BP 108/69; PULSE 97; RESP 16; TEMP 36.3; O2SAT 97
[2023-05-13] MEDS: prenatal vitamin Capsule 1 CAP PO (08:47)
[2023-05-13] MEDS: sertraline 50 mg Tablet 100 MG PO (08:47)
--- NOTE | 2023-05-13 12:20 | W.PM.NPUPNS ---
Subjective NPU Subjective: Patient presented today reporting that she is feeling okay. She endorsed that she has been working with the social work team and this place for sober living treatment that they appear to have secured feels like it will be just what she needs. She reports she is fully invested in attending this program. She reports that she feels precarious in the current situation of feeling very committed to sobriety but having limited success and knowing the risks that this portends for her unborn child. We agreed that we would work to get her to this program likely Wednesday safe and sober. Mental Status Exam MSE Comments: This is an overweight, white female, in hospital scrubs with adequate grooming, and eye contact. No abnormal movements except for mild psychomotor retardation. Cooperative with exam in mild distress. Speech was decreased l rate and volume. Mood described as okay, optimistic with this possible placement; affect congruent. Thought process, organized. Thought content: patient denied any suicidal or homicidal ideation, there were no delusions reported or noted, patient denied any auditory or visual hallucinations. Attention, concentration, and memory appeared intact but none were formally tested. She is alert and oriented times three. Insight and judgment are limited but improving. Impulse control is limited but improving. Vitals/I&O/Wt Last Vital Signs Temp 97.4 F L 05/13/23 06:00 Pulse 97 05/13/23 06:00 Resp 16 05/13/23 06:00 BP 108/69 05/13/23 06:00 Pulse Ox 97 05/13/23 06:00 O2 Del Method Room Air 05/13/23 06:00 Data NPU 05/05/23 01:13 05/05/23 01:13 A&P Assessment and plan (1) Depression, unspecified: (2) Acute psychosis: (3) Methamphetamine abuse: (4) : (5) Post-traumatic stress disorder, chronic: (6) Generalized anxiety disorder: Plan 32-year-old female currently 31 weeks admitted with disorganized behavior and complaints of hallucinations, suicidal ideation who appears negative on preliminary drug screen but with a hx of multiple dependence. Patient will continue require inpatient hospitalization. 1.?Encourage individual, group and milieu therapy. 2.?Recommend sober living treatment at the highest level of care to which the patient is willing to commit. 3.??? Continue q-15 minute checks for safety.? 4. Continue zoloft to 100mg in am and continue low-dose of Haldol 2 mg to target psychosis. Give Macrobid 100 mg twice daily for 3 days for her UTI. 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 Given her history of homelessness and lack of residential along with her current medical status, We are continuing to search for inpatient options with living support while continuing to supervise with medications and work with patient on addiction issues. We located a program that would likely take her at the earliest they can take her will be next Wednesday. Given her current risks in status discharging to a homeless residential or something of that sort would be inappropriate and clinically on sounds. Involuntary Hold Information 96 Hour Hold: 96 Hour Involuntary Admission: No 96 Hour Hold Ending Date: 04/15/23 96 Hour Hold Ending Time: 04:20 Attestations NPU Medical Necessity Statement*: Inpatient hospitalization is medically necessary and deemed to be the clinically appropriate intervention at this time. We will monitor and initiate medications while making changes as indicated. The patient's likely length of stay is 5-6 days. Coding Level of Care Code Acute Code for [facility]g Fwd Diagnoses Depression, unspecified F32.A Acute psychosis F23 Methamphetamine abuse F15.10 Z34.90 Post-traumatic stress disorder, chronic F43.12 Generalized anxiety disorder F41.1
[2023-05-13 14:00] VITALS: BP 113/68; PULSE 81; RESP 16; TEMP 36.6; O2SAT 98
[2023-05-13] MEDS: haloperidol 1 mg Tablet 2 MG PO (17:18)
[2023-05-13 20:07] VITALS: BP 126/78; PULSE 84; RESP 18; TEMP 36.8; O2SAT 98
[2023-05-13] MEDS: nitrofurantoin SR (BID) 100 mg Capsule PO (20:11)
[2023-05-13] MEDS: trazodone 50 mg Tablet PO (20:11)
[2023-05-14 06:00] VITALS: BP 122/73; PULSE 85; RESP 18; TEMP 36.6; O2SAT 98
[2023-05-14] MEDS: prenatal vitamin Capsule 1 CAP PO (08:26)
[2023-05-14] MEDS: nitrofurantoin SR (BID) 100 mg Capsule PO ×2 (08:26→17:45)
[2023-05-14] MEDS: sertraline 50 mg Tablet 100 MG PO (08:26)
[2023-05-14 14:00] VITALS: BP 125/78; PULSE 86; RESP 17; TEMP 36.3; O2SAT 98
--- NOTE | 2023-05-14 15:07 | W.PM.NPUPNS ---
Subjective NPU Subjective: Patient presented today reporting that she is feeling very optimistic. She had a phone interview with the possible excepting program and they have formally agreed to take her no later than Wednesday. So it is possible if things materialize quickly enough that she can go on Wednesday. We discussed our team not having any other viable options prior to that time. We discussed the plan to make sure everything is ready on Wednesday so that we would not be the rate limiting step. Mental Status Exam MSE Comments: This is an overweight, white female, in hospital scrubs with adequate grooming, and eye contact. No abnormal movements except for mild psychomotor retardation. Cooperative with exam in mild distress. Speech was decreased l rate and volume. Mood described as okay, optimistic with this possible placement; affect congruent. Thought process, organized. Thought content: patient denied any suicidal or homicidal ideation, there were no delusions reported or noted, patient denied any auditory or visual hallucinations. Attention, concentration, and memory appeared intact but none were formally tested. She is alert and oriented times three. Insight and judgment are limited but improving. Impulse control is limited but improving. Vitals/I&O/Wt Last Vital Signs Temp 97.4 F L 05/14/23 14:00 Pulse 86 05/14/23 14:00 Resp 17 05/14/23 14:00 BP 125/78 05/14/23 14:00 Pulse Ox 98 05/14/23 14:00 O2 Del Method Room Air 05/14/23 14:00 Data NPU 05/05/23 01:13 05/05/23 01:13 A&P Assessment and plan (1) Depression, unspecified: (2) Acute psychosis: (3) Methamphetamine abuse: (4) : (5) Post-traumatic stress disorder, chronic: (6) Generalized anxiety disorder: Plan 32-year-old female currently 31 weeks admitted with disorganized behavior and complaints of hallucinations, suicidal ideation who appears negative on preliminary drug screen but with a hx of multiple dependence. Patient will continue require inpatient hospitalization. 1.?Encourage individual, group and milieu therapy. 2.?Recommend sober living treatment at the highest level of care to which the patient is willing to commit. 3.??? Continue q-15 minute checks for safety.? 4. Continue zoloft to 100mg in am and continue low-dose of Haldol 2 mg to target psychosis. Give Macrobid 100 mg twice daily for 3 days for her UTI. 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 Given her history of homelessness and lack of penitentiary along with her current medical status, We are continuing to search for inpatient options with living support while continuing to supervise with medications and work with patient on addiction issues. We located a program that will take her at this Wednesday. Given her current risks in status discharging to a homeless penitentiary or something of that sort would be inappropriate and clinically unsound. Involuntary Hold Information 96 Hour Hold: 96 Hour Involuntary Admission: No 96 Hour Hold Ending Date: 04/15/23 96 Hour Hold Ending Time: 04:20 Attestations NPU Medical Necessity Statement*: Inpatient hospitalization is medically necessary and deemed to be the clinically appropriate intervention at this time. We will monitor and initiate medications while making changes as indicated. The patient's likely length of stay is 4 days. Coding Level of Care Code Acute Code for [facility] Fwd Diagnoses Depression, unspecified F32.A Acute psychosis F23 Methamphetamine abuse F15.10 Z34.90 Post-traumatic stress disorder, chronic F43.12 Generalized anxiety disorder F41.1
[2023-05-14] MEDS: haloperidol 1 mg Tablet 2 MG PO (17:45)
[2023-05-14 20:11] VITALS: BP 120/77; PULSE 72; RESP 18; O2SAT 99
[2023-05-14] MEDS: trazodone 50 mg Tablet PO ×2 (20:17→20:54)
[2023-05-15 06:00] VITALS: BP 100/63; PULSE 70; RESP 16; O2SAT 98
--- NOTE | 2023-05-15 07:35 | W.PM.NPUPNS ---
Subjective NPU Subjective: Patient presented today reporting that she is feeling a little better. She is feeling very optimistic about her placement on Wednesday and reports being interested and committed to following through with that program. She is very appreciative of the treatment team finding her this opportunity and supporting her own to stay. She denies any concerns otherwise. Mental Status Exam MSE Comments: This is an overweight, white female, in hospital scrubs with adequate grooming, and eye contact. No abnormal movements except for mild psychomotor retardation. Cooperative with exam in mild distress. Speech was decreased l rate and volume. Mood described as okay, optimistic with this possible placement; affect congruent. Thought process, organized. Thought content: patient denied any suicidal or homicidal ideation, there were no delusions reported or noted, patient denied any auditory or visual hallucinations. Attention, concentration, and memory appeared intact but none were formally tested. She is alert and oriented times three. Insight and judgment are limited but improving. Impulse control is limited but improving. Vitals/I&O/Wt Last Vital Signs Temp 97.4 F L 05/14/23 14:00 Pulse 70 05/15/23 06:00 Resp 16 05/15/23 06:00 BP 100/63 05/15/23 06:00 Pulse Ox 98 05/15/23 06:00 O2 Del Method Room Air 05/15/23 06:00 Data NPU 05/05/23 01:13 05/05/23 01:13 A&P Assessment and plan (1) Depression, unspecified: (2) Acute psychosis: (3) Methamphetamine abuse: (4) : (5) Post-traumatic stress disorder, chronic: (6) Generalized anxiety disorder: Plan 32-year-old female currently 31 weeks admitted with disorganized behavior and complaints of hallucinations, suicidal ideation who appears negative on preliminary drug screen but with a hx of multiple dependence. Patient will continue require inpatient hospitalization. 1.?Encourage individual, group and milieu therapy. 2.?Recommend sober living treatment at the highest level of care to which the patient is willing to commit. 3.??? Continue q-15 minute checks for safety.? 4. Continue zoloft to 100mg in am and continue low-dose of Haldol 2 mg to target psychosis. Give Macrobid 100 mg twice daily for 3 days for her UTI. 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 Given her history of homelessness and lack of long-term along with her current medical status, We are continuing to search for inpatient options with living support while continuing to supervise with medications and work with patient on addiction issues. We located a program that will take her at this Wednesday. Given her current risks in status discharging to a homeless long-term or something of that sort would be inappropriate and clinically unsound. Involuntary Hold Information 96 Hour Hold: 96 Hour Involuntary Admission: No 96 Hour Hold Ending Date: 04/15/23 96 Hour Hold Ending Time: 04:20 Attestations NPU Medical Necessity Statement*: Inpatient hospitalization is medically necessary and deemed to be the clinically appropriate intervention at this time. We will monitor and initiate medications while making changes as indicated. The patient's likely length of stay is 3 days. Coding Level of Care Code Acute Code for Chg Fwd Diagnoses Depression, unspecified F32.A Acute psychosis F23 Methamphetamine abuse F15.10 Z34.90 Post-traumatic stress disorder, chronic F43.12 Generalized anxiety disorder F41.1
[2023-05-15] MEDS: nicotine 21 mg Patch 1 PATCH TRANSDERMA (09:13)
[2023-05-15] MEDS: prenatal vitamin Capsule 1 CAP PO (09:13)
[2023-05-15] MEDS: sertraline 50 mg Tablet 100 MG PO (09:14)
[2023-05-15] MEDS: nitrofurantoin SR (BID) 100 mg Capsule PO ×2 (09:14→17:29)
[2023-05-15 14:00] VITALS: BP 121/78; PULSE 86; RESP 18; TEMP 36.3; O2SAT 98
[2023-05-15] MEDS: haloperidol 1 mg Tablet 2 MG PO (17:29)
[2023-05-15] MEDS: trazodone 50 mg Tablet 100 MG PO (20:03)
[2023-05-15 20:19] VITALS: BP 117/75; PULSE 73; RESP 18; O2SAT 97
[2023-05-16 06:00] VITALS: BP 107/61; PULSE 71; RESP 15; TEMP 36.6; O2SAT 98
--- NOTE | 2023-05-16 07:36 | W.PM.NPUPNS ---
Subjective NPU Subjective: Patient presented today reporting that she is very excited about leaving on Wednesday. She is appreciative of being here but starting to get a little cabin fever. She reports that she is doing fine with the medication except for her sleep has been challenging. We discussed the risks, benefits and alternatives of increasing her trazodone to 100 mg p.o. nightly and she understood and agreed to proceed as is documented in this note. She denied any other pressing issues. Mental Status Exam MSE Comments: This is an overweight, white female, in hospital scrubs with adequate grooming, and eye contact. No abnormal movements except for mild psychomotor retardation. Cooperative with exam in no acute distress. Speech was more normal rate and volume. Mood described as okay, optimistic with this placement; affect congruent. Thought process, organized. Thought content: patient denied any suicidal or homicidal ideation, there were no delusions reported or noted, patient denied any auditory or visual hallucinations. Attention, concentration, and memory appeared intact but none were formally tested. She is alert and oriented times three. Insight and judgment are limited but improving. Impulse control is limited but improving. Vitals/I&O/Wt Last Vital Signs Temp 97.8 F 05/16/23 06:00 Pulse 71 05/16/23 06:00 Resp 15 05/16/23 06:00 BP 107/61 05/16/23 06:00 Pulse Ox 98 05/16/23 06:00 O2 Del Method Room Air 05/16/23 06:00 Weight last 48 hrs Weight 85.094 kg Data NPU 05/05/23 01:13 05/05/23 01:13 A&P Assessment and plan (1) Depression, unspecified: (2) Acute psychosis: (3) Methamphetamine abuse: (4) : (5) Post-traumatic stress disorder, chronic: (6) Generalized anxiety disorder: Plan 32-year-old female currently 31 weeks admitted with disorganized behavior and complaints of hallucinations, suicidal ideation who appears negative on preliminary drug screen but with a hx of multiple dependence. Patient will continue require inpatient hospitalization. 1.?Encourage individual, group and milieu therapy. 2.?Recommend sober living treatment at the highest level of care to which the patient is willing to commit. 3.??? Continue q-15 minute checks for safety.? 4. Continue zoloft to 100mg in am and continue low-dose of Haldol 2 mg to target psychosis. Gave Macrobid 100 mg twice daily for 3 days for her UTI. Trazodone to 100 mg p.o. nightly. 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 Given her history of homelessness and lack of assisted along with her current medical status, We are continuing to search for inpatient options with living support while continuing to supervise with medications and work with patient on addiction issues. We located a program that will take her at this Wednesday. Given her current risks in status discharging to a homeless assisted or something of that sort would be inappropriate and clinically unsound. Involuntary Hold Information 96 Hour Hold: 96 Hour Involuntary Admission: No 96 Hour Hold Ending Date: 04/15/23 96 Hour Hold Ending Time: 04:20 Attestations U Medical Necessity Statement*: Inpatient hospitalization is medically necessary and deemed to be the clinically appropriate intervention at this time. We will monitor and initiate medications while making changes as indicated. The patient's likely length of stay is 2 days. Coding Level of Care Code Acute Code for [facility] Fwd Diagnoses Depression, unspecified F32.A Acute psychosis F23 Methamphetamine abuse F15.10 Z34.90 Post-traumatic stress disorder, chronic F43.12 Generalized anxiety disorder F41.1
[2023-05-16] MEDS: nitrofurantoin SR (BID) 100 mg Capsule PO ×2 (08:11→18:10)
[2023-05-16] MEDS: prenatal vitamin Capsule 1 CAP PO (08:11)
[2023-05-16] MEDS: sertraline 50 mg Tablet 100 MG PO (08:11)
--- NOTE | 2023-05-16 08:17 | PC.NURSE ---
During assessment, patient denies all. patient calm and cooperative. No distress noted. Patient's FHTs this AM were in 150s. Patient requesting US pics but per OB department, the pictures cannot be printed there because she is here in the unit, considered restricted .
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
--- NOTE | 2023-05-16 13:02 | USR_ITS ---
PROCEDURE INFORMATION: Exam: US After First Trimester, Transabdominal Exam date and time: 05/16/2023 4:05 PM Age: 32 years old Clinical indication: Screening exam; Routine US, uterus; Additional info: No care, full ob ultrasound to compare with previous er ultrasound LABS AND CLINICAL REPORTS: Last menstrual period start date: 10/12/2022 Gestational age (Established): 30 w 6 d Estimated due date (Established): 07/19/2023 TECHNIQUE: Imaging protocol: Real-time transabdominal obstetrical ultrasound of the maternal pelvis and a second or third trimester with image documentation. COMPARISON: US OB limited [id number] 05/05/2023 12:19 AM FINDINGS: Gestation: Single, viable intrauterine gestation. heart rate: 141 bpm presentation: The fetus is in vertex presentation. Placenta: Unremarkable. No subchorionic bleed. Placenta is anterior. Amniotic fluid: Amount of amniotic fluid is subjectively normal for this stage of . ANATOMY: midline falx: Unremarkable. cerebellum: Unremarkable. lateral ventricles: Unremarkable. cisterna magna: Unremarkable. choroid plexus: Unremarkable. upper lip and nose: Obscured by position. heart four-chamber view, heart size and position: Unremarkable. There is a four-chamber heart. aortic arch: Unremarkable. right ventricular outflow tract: Unremarkable. left ventricular outflow tract: Obscured by position. kidneys: Unremarkable. stomach: Unremarkable. urinary bladder: Unremarkable. spine: Unremarkable. Umbilical cord insertion site into the abdomen: Unremarkable. Umbilical cord vessel number: There is a three-vessel umbilical cord. extremities: Unremarkable as visualized. external genitalia: Images show presumptive male external genitalia. BIOMETRY: Gestational age (AUA): 31 w 1 d Estimated due date (AUA): 07/17/2023 Estimated weight: 1697 g Biparietal diameter (BPD): 7.8 cm. EGA (BPD) is 31 w 2 d Head circumference (HC): 28.3 cm. EGA (HC) is 31 w 0 d Abdominal circumference (AC): 26.6 cm. EGA (AC) is 30 w 5 d Humerus length (HL): 5.4 cm. EGA (HL) is 30 w 6 d Femur length (FL): 6.1 cm. EGA (FL) is 31 w 5 d Cephalic Index (CI): 81.4 % HC/AC: 1.06 FL/HC: 21.6 % FL/BPD: 78.4 % FL/AC: 22.9 % MATERNAL: Uterus: Unremarkable as visualized. Cervix: Not evaluated on the current study. Right ovary/adnexa: Obscured by lack of adequate acoustic window. Left ovary/adnexa: Obscured by lack of adequate acoustic window. Intraperitoneal space: No intraperitoneal free fluid. US/US OB >= 14 weeks fetus [id number] IMPRESSION: 1. Single live intrauterine gestation. Estimated gestational age of 31 weeks 1 day. Estimated delivery date by ultrasound is 07/17/2023. 2. The left ventricular outflow tract and upper lip/nose and profile were not definitely visualized. The remainder of the anatomic survey is unremarkable.
--- NOTE | 2023-05-16 13:08 | USR_ITS ---
PROCEDURE INFORMATION: Exam: US Biophysical Profile Without Non-Stress Test Exam date and time: 05/16/2023 3:41 PM Age: 32 years old Clinical indication: Screening exam; Routine US screening of fetus; Third trimester (=28 weeks 0 days); ; Patient HX: Patient has not had any care; Additional info: No care TECHNIQUE: Imaging protocol: US biophysical profile without non-stress testing. COMPARISON: US OB limited [id number] 05/05/2023 12:19 AM FINDINGS: Gestation: Single, viable intrauterine gestation. heart rate: 144 bpm presentation: The fetus is in vertex presentation. Placenta: The placenta is anterior. Amniotic fluid: Normal amount of amniotic fluid, with an amniotic fluid index of 7.81 cm using a maximum vertical pocket method. BIOPHYSICAL PROFILE: breathing movement (BPP): 2 out of 2. body movement (BPP): 2 out of 2. tone (BPP): 2 out of 2. Amniotic fluid (BPP): 2 out of 2. MATERNAL ANATOMY: Cervix: Cervical length measures 6.5 cm. Cervix is closed. No shortening or effacement. US/US OB BPP wo NST [id number] IMPRESSION: 1. Single, viable intrauterine gestation. 2. Biophysical profile score 8/8.
[2023-05-16 14:00] VITALS: BP 100/62; PULSE 80; RESP 18; TEMP 36.9; O2SAT 98
[2023-05-16] MEDS: ferrous sulfate EC 325 mg Tablet PO (18:10)
[2023-05-16] MEDS: haloperidol 1 mg Tablet 2 MG PO (18:11)
[2023-05-16] MEDS: metroNIDAZOLE 500 MG Tablet 2000 MG PO (18:20)
[2023-05-16 20:05] VITALS: BP 132/81; PULSE 94; RESP 16; O2SAT 99
[2023-05-16] MEDS: trazodone 50 mg Tablet 100 MG PO (20:07)
[2023-05-16 20:29] LABS: HIV 1 & 2 Antibody Non-Reactive (Non-Reactiv); HIV 1 & 2 Antigen Non-Reactive (Non-Reactiv)
[2023-05-16 22:15] LABS: Rubella IgG 42.9 IU/mL (0.0-10.0)
[2023-05-16 22:20] LABS: Hepatitis B Surface Antigen Non-Reactive (Nonreactive)
[2023-05-16 23:01] LABS: Rapid Plasma Reagin Syphilis Reactive (Nonreactive)
[2023-05-17 06:00] VITALS: BP 117/70; PULSE 69; RESP 16; TEMP 36.7; O2SAT 98
[2023-05-17] MEDS: nitrofurantoin SR (BID) 100 mg Capsule PO ×2 (08:23→18:14)
[2023-05-17] MEDS: prenatal vitamin Capsule 1 CAP PO (08:23)
[2023-05-17] MEDS: sertraline 50 mg Tablet 100 MG PO (08:23)
[2023-05-17] MEDS: ferrous sulfate EC 325 mg Tablet PO ×2 (08:23→18:14)
--- NOTE | 2023-05-17 09:07 | W.PM.NPUPNS ---
Subjective NPU Subjective: Patient presented today reporting that she is doing fine. She is excited about discharging tomorrow and we agreed to get all of her medications ready today. She reports that she is optimistic about the as well as this sober living treatment and appreciative of the support of the treatment team to get her here sober through the inpatient stay. She was able to see the OB yesterday and get an ultrasound which gave her additional relief. Mental Status Exam MSE Comments: This is an overweight, white female, in hospital scrubs with adequate grooming, and eye contact. No abnormal movements except for mild psychomotor retardation. Cooperative with exam in no acute distress. Speech was more normal rate and volume. Mood described as okay, optimistic with this placement; affect congruent. Thought process, organized. Thought content: patient denied any suicidal or homicidal ideation, there were no delusions reported or noted, patient denied any auditory or visual hallucinations. Attention, concentration, and memory appeared intact but none were formally tested. She is alert and oriented times three. Insight and judgment are limited but improving. Impulse control is limited but improving. Vitals/I&O/Wt Last Vital Signs Temp 98.0 F 05/17/23 06:00 Pulse 69 05/17/23 06:00 Resp 16 05/17/23 06:00 BP 117/70 05/17/23 06:00 Pulse Ox 98 05/17/23 06:00 O2 Del Method Room Air 05/16/23 14:00 Weight last 48 hrs Weight 85.094 kg Data NPU 05/05/23 01:13 05/05/23 01:13 A&P Assessment and plan (1) Depression, unspecified: (2) Acute psychosis: (3) Methamphetamine abuse: (4) : (5) Post-traumatic stress disorder, chronic: (6) Generalized anxiety disorder: Plan 32-year-old female currently 31 weeks admitted with disorganized behavior and complaints of hallucinations, suicidal ideation who appears negative on preliminary drug screen but with a hx of multiple dependence. Patient will continue require inpatient hospitalization. 1.?Encourage individual, group and milieu therapy. 2.?Recommend sober living treatment at the highest level of care to which the patient is willing to commit. 3.??? Continue q-15 minute checks for safety.? 4. Continue zoloft to 100mg in am and continue low-dose of Haldol 2 mg to target psychosis. Gave Macrobid 100 mg twice daily for 3 days for her UTI. Increased trazodone to 100 mg p.o. nightly. 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 Given her history of homelessness and lack of longterm along with her current medical status, We are continuing to search for inpatient options with living support while continuing to supervise with medications and work with patient on addiction issues. We located a program that will take her at this Wednesday. Given her current risks in status discharging to a homeless longterm or something of that sort would be inappropriate and clinically unsound. 6. Discharge tomorrow. Involuntary Hold Information 96 Hour Hold: 96 Hour Involuntary Admission: No 96 Hour Hold Ending Date: 04/15/23 96 Hour Hold Ending Time: 04:20 Attestations NPU Medical Necessity Statement*: Inpatient hospitalization is medically necessary and deemed to be the clinically appropriate intervention at this time. We will monitor and initiate medications while making changes as indicated. The patient's likely length of stay is 1 day. Coding Level of Care Code Acute Code for [facility] Fwd Diagnoses Depression, unspecified F32.A Acute psychosis F23 Methamphetamine abuse F15.10 Z34.90 Post-traumatic stress disorder, chronic F43.12 Generalized anxiety disorder F41.1
[2023-05-17 13:53] VITALS: BP 116/77; PULSE 89; RESP 16; TEMP 36.7; O2SAT 98
[2023-05-17 17:55] VITALS: BP 116/77; PULSE 89; RESP 16; TEMP 36.7; O2SAT 98
[2023-05-17] MEDS: haloperidol 1 mg Tablet 2 MG PO (18:14)
[2023-05-17] MEDS: nicotine 2 mg Gum BUCCAL (18:22)
[2023-05-17 19:57] VITALS: BP 130/88; PULSE 79; RESP 18; O2SAT 99
[2023-05-17] MEDS: trazodone 50 mg Tablet 100 MG PO (20:00)
[2023-05-18 06:00] VITALS: BP 107/67; PULSE 84; RESP 16; TEMP 36.7; O2SAT 98
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
[2023-05-18] MEDS: sertraline 50 mg Tablet 100 MG PO (07:56)
[2023-05-18] MEDS: prenatal vitamin Capsule 1 CAP PO (07:56)
[2023-05-18] MEDS: ferrous sulfate EC 325 mg Tablet PO (07:57)
[2023-05-18] MEDS: nitrofurantoin SR (BID) 100 mg Capsule PO (07:57)
[2023-05-18] MEDS: nicotine 21 mg Patch 1 PATCH TRANSDERMA (07:59)
== END 2023-05-18 08:06 | disposition home or self-care (01) | DRG 885 ==
LOC: ER 01:09 → NP 01:28
PROVIDERS: Obstetrics & Gynecology; Admitting Provider Psychiatry & Neurology Psychiatry; Emergency Provider Physician Assistant; Visit Provider Psychiatry & Neurology Psychiatry
DX: F23 Brief psychotic disorder (principal); R45.851 Suicidal ideations; O23.43 Unspecified infection of urinary tract in pregnancy, third trimester; N39.0 Urinary tract infection, site not specified; F43.12 Post-traumatic stress disorder, chronic; X58.XXXA Exposure to other specified factors, initial encounter; Z91.148 Patient's other noncompliance with medication regimen for other reason; Z3A.31 31 weeks gestation of pregnancy; A59.9 Trichomoniasis, unspecified; F15.129 Other stimulant abuse with intoxication, unspecified; F41.1 Generalized anxiety disorder; F32.A Depression, unspecified; F15.10 Other stimulant abuse, uncomplicated
CPT/HCPCS: 36415; 76805; 76819; 80053; 80306; 80307; 85025; 86592; 86762; 86850; 86900; 87340; 87491; 87591; 87806; 96372; 97150; 97165; 99238; 99285; J0696; Q0144